=== PATIENT | male | born 1950 | race Caucasian/White ===

== ENCOUNTER 2020-04-26 09:26 | Outpatient (REF) | payer MEDICARE, SELFPAY ==
[2020-04-26 10:12] LABS: MANUAL DIFF FLAG NO
[2020-04-26 10:19] LABS: Basophils Percent Auto 0.7 % (0-2); Eosinophils Absolute Auto 0.2 X10*3/uL (0.0-0.4); Eosinophils Percent Auto 2.9 % (0-4); Hematocrit 40.2 % (42-52); Hemoglobin 13.7 g/dl (14.0-18.0); Imm Gran Abs Auto 0.09 X10*3/uL (0.00-0.03); Imm Gran Pct Auto 1.5 % (0.0-0.4); Lymphocytes Absolute Auto 1.1 X10*3/uL (1.2-4.9); Lymphocytes Percent Auto 18.4 % (20-40); Mean Corpuscular HGB Conc 34.1 g/dl (31.0-36.0); Mean Corpuscular Hemoglobin 33.2 pg (27.0-33.0); Mean Corpuscular Volume 97.3 fL (80-98); Mean Platelet Volume 10.6 fL (9.4-12.4); Monocytes Absolute Auto 0.7 X10*3/uL (0.1-1.2); Monocytes Percent Auto 11.3 % (2-11); Neutrophils Absolute Auto 3.8 X10*3/uL (2.0-8.3); Neutrophils Percent Auto 65.2 % (45-73); Platelet Count 224 X10*3/uL (160-400); Red Blood Count 4.13 X10*6/uL (4.60-5.80); Red Cell Distribution Width 12.3 % (11.0-16.0); White Blood Count 5.8 X10*3/uL (4.8-10.8)
[2020-04-26 10:51] LABS: Alanine Aminotransferase 27 U/L (0-40); Alkaline Phosphatase 80 U/L (39-117); Anion Gap 11 (12-20); Aspartate Amino Transferase 18 U/L (5-37); Bilirubin Total 1.3 mg/dL (0.0-1.0); Blood Urea Nitrogen 19 mg/dL (9-16); Calcium 9.5 mg/dL (8.4-10.2); Carbon Dioxide 25 mmol/L (22-29); Chloride 102 mmol/L (96-108); Estimated Glomerular Filt Rate > 60; Glucose Random 293 mg/dL (60-115); Iron 121 mcg/dL (45-160); Percent Iron Saturation 44 % (15-50); Potassium 4.4 mmol/l (3.3-5.1); Sodium 134 mmol/L (135-145); Total Iron Binding Capacity 277 mcg/dL (228-428); Total Protein 6.2 g/dL (6.5-8.0); Unsaturated Iron Binding 156 ug/dL
[2020-04-26 11:25] LABS: Estimated Average Glucose 214 mg/dL; Hemoglobin A1c % 9.1 %
[2020-04-26 11:47] LABS: Creatinine Urine 48.73 mg/dL; Microalbumin Urine < 5.0 mg/L
== END 2020-04-26 09:27 | disposition home or self-care (01) ==
LOC: HO.10HDL 09:26
PROVIDERS: Visit Provider Internal Medicine
DX: D64.9 Anemia, unspecified (principal); I10 Essential (primary) hypertension; E11.9 Type 2 diabetes mellitus without complications
CPT/HCPCS: 36415; 80053; 82043; 83036; 83540; 85025

== ENCOUNTER 2020-09-13 10:08 | Outpatient (REF) | payer MEDICARE, SELFPAY ==
[2020-09-13 13:51] LABS: MANUAL DIFF FLAG NO
[2020-09-13 14:02] LABS: Basophils Absolute Auto 0.1 X10*3/uL (0.0-0.2); Basophils Percent Auto 0.9 % (0-2); Eosinophils Absolute Auto 0.2 X10*3/uL (0.0-0.4); Eosinophils Percent Auto 2.8 % (0-4); Hematocrit 39.8 % (42-52); Hemoglobin 13.5 g/dl (14.0-18.0); Imm Gran Abs Auto 0.13 X10*3/uL (0.00-0.03); Lymphocytes Absolute Auto 1.4 X10*3/uL (1.2-4.9); Lymphocytes Percent Auto 21.9 % (20-40); Mean Corpuscular HGB Conc 33.9 g/dl (31.0-36.0); Mean Corpuscular Hemoglobin 32.8 pg (27.0-33.0); Mean Corpuscular Volume 96.8 fL (80-98); Mean Platelet Volume 11.2 fL (9.4-12.4); Monocytes Absolute Auto 0.7 X10*3/uL (0.1-1.2); Monocytes Percent Auto 10.9 % (2-11); Neutrophils Absolute Auto 3.9 X10*3/uL (2.0-8.3); Neutrophils Percent Auto 61.5 % (45-73); Platelet Count 202 X10*3/uL (160-400); Red Blood Count 4.11 X10*6/uL (4.60-5.80); Red Cell Distribution Width 12.8 % (11.0-16.0); White Blood Count 6.4 X10*3/uL (4.8-10.8)
[2020-09-13 14:19] LABS: Alanine Aminotransferase 20 U/L (0-40); Albumin Level 4.1 g/dL (3.5-5.0); Alkaline Phosphatase 81 U/L (39-117); Anion Gap 14 (12-20); Aspartate Amino Transferase 14 U/L (5-37); Bilirubin Total 1.2 mg/dL (0.0-1.0); Blood Urea Nitrogen 19 mg/dL (9-16); Calcium 9.6 mg/dL (8.4-10.2); Carbon Dioxide 24 mmol/L (22-29); Chloride 103 mmol/L (96-108); Estimated Glomerular Filt Rate > 60; Glucose Random 296 mg/dL (60-115); Potassium 4.7 mmol/L (3.3-5.1); Sodium 136 mmol/L (135-145); Total Protein 6.4 g/dL (6.5-8.0)
[2020-09-13 14:38] LABS: Estimated Average Glucose 209 mg/dL; Hemoglobin A1c % 8.9 %
[2020-09-13 14:52] LABS: Creatinine Urine 42.24 mg/dL; Microalbumin Urine < 5.0 mg/L
== END 2020-09-13 10:09 | disposition home or self-care (01) ==
LOC: HO.10HDL 10:08
PROVIDERS: Visit Provider Internal Medicine
DX: E11.9 Type 2 diabetes mellitus without complications (principal); I10 Essential (primary) hypertension
CPT/HCPCS: 36415; 80053; 82043; 83036; 85025

== ENCOUNTER 2020-10-29 07:06 | Outpatient (REF) | payer MEDICARE, SELFPAY ==
[2020-10-29 08:24] LABS: Anion Gap 10 (12-20); Blood Urea Nitrogen 19 mg/dL (9-16); Calcium 9.8 mg/dL (8.4-10.2); Carbon Dioxide 25 mmol/L (22-29); Chloride 102 mmol/L (96-108); Estimated Glomerular Filt Rate > 60; Glucose Random 335 mg/dL (60-115); Potassium 4.9 mmol/L (3.3-5.1); Sodium 132 mmol/L (135-145)
[2020-10-29 09:21] LABS: Estimated Average Glucose 206 mg/dL; Hemoglobin A1c % 8.8 %
== END 2020-10-29 07:07 | disposition home or self-care (01) ==
LOC: HO.LAB 07:06
PROVIDERS: PCP Internal Medicine; Visit Provider Internal Medicine
DX: E11.9 Type 2 diabetes mellitus without complications (principal)
CPT/HCPCS: 36415; 80048; 83036

== ENCOUNTER 2021-02-28 12:22 | Outpatient (REF) | payer MEDICARE, SELFPAY ==
[2021-02-28 14:44] LABS: Estimated Average Glucose 200 mg/dL; Hemoglobin A1c % 8.6 %
[2021-02-28 15:08] LABS: Alanine Aminotransferase 16 U/L (0-40); Alkaline Phosphatase 75 U/L (39-117); Anion Gap 12 (12-20); Aspartate Amino Transferase 13 U/L (5-37); Blood Urea Nitrogen 14 mg/dL (9-16); Calcium 9.9 mg/dL (8.4-10.2); Carbon Dioxide 25 mmol/L (22-29); Chloride 104 mmol/L (96-108); Estimated Glomerular Filt Rate > 60; Glucose Random 243 mg/dL (60-115); Potassium 4.4 mmol/L (3.3-5.1); Sodium 137 mmol/L (135-145); Total Protein 6.1 g/dL (6.5-8.0)
== END 2021-02-28 12:23 | disposition home or self-care (01) ==
LOC: HO.10HDL 12:22
PROVIDERS: Visit Provider Internal Medicine
DX: E11.9 Type 2 diabetes mellitus without complications (principal); I10 Essential (primary) hypertension; I25.10 Atherosclerotic heart disease of native coronary artery without angina pectoris
CPT/HCPCS: 36415; 80053; 83036

== ENCOUNTER 2021-05-02 08:13 | Outpatient (REF) | payer MEDICARE, SELFPAY ==
[2021-05-02 08:38] LABS: MANUAL DIFF FLAG NO
[2021-05-02 09:37] LABS: Basophils Absolute Auto 0.1 X10*3/uL (0.0-0.2); Basophils Percent Auto 1.1 % (0-2); Eosinophils Absolute Auto 0.2 X10*3/uL (0.0-0.4); Eosinophils Percent Auto 3.9 % (0-4); Hematocrit 39.8 % (42.0-52.0); Hemoglobin 13.3 g/dl (14.0-18.0); Imm Gran Abs Auto 0.12 X10*3/uL (0.00-0.03); Imm Gran Pct Auto 2.2 % (0.0-0.4); Lymphocytes Absolute Auto 1.2 X10*3/uL (1.2-4.9); Lymphocytes Percent Auto 21.9 % (20-40); Mean Corpuscular HGB Conc 33.4 g/dl (31.0-36.0); Mean Corpuscular Hemoglobin 33.1 pg (27.0-33.0); Mean Platelet Volume 11.1 fL (9.4-12.4); Monocytes Absolute Auto 0.6 X10*3/uL (0.1-1.2); Monocytes Percent Auto 10.5 % (2-11); Neutrophils Absolute Auto 3.3 x10*3/uL (2.0-8.3); Neutrophils Percent Auto 60.4 % (45-73); Platelet Count 217 X10*3/uL (160-400); Red Blood Count 4.02 X10*6/uL (4.60-5.80); Red Cell Distribution Width 12.7 % (11.0-16.0); White Blood Count 5.4 X10*3/uL (4.8-10.8)
[2021-05-02 09:47] LABS: Estimated Average Glucose 171 mg/dL; Hemoglobin A1c % 7.6 %
[2021-05-02 10:07] LABS: Alanine Aminotransferase 17 U/L (0-40); Alkaline Phosphatase 78 U/L (39-117); Anion Gap 12 (12-20); Aspartate Amino Transferase 17 U/L (5-37); Bilirubin Total 0.7 mg/dL (0.0-1.0); Blood Urea Nitrogen 16 mg/dL (9-16); Calcium 9.7 mg/dL (8.4-10.2); Carbon Dioxide 23 mmol/L (22-29); Chloride 108 mmol/L (96-108); Cholesterol 106 mg/dL; Estimated Glomerular Filt Rate > 60; Glucose Fasting 173 mg/dL (60-99); HDL Cholesterol 43 mg/dL; LDL Cholesterol Calculated 52 mg/dl; Potassium 4.6 mmol/L (3.3-5.1); Sodium 138 mmol/L (135-145); Total Protein 6.3 g/dL (6.5-8.0); Triglycerides 55 mg/dL
[2021-05-02 10:43] LABS: Creatinine Urine 139.64 mg/dL; Microalbum/Creatinine Ratio Ur 6.4 ug/mg cr
[2021-05-02 11:13] LABS: Prostate Specific Antigen Scr 1.64 ng/mL (<0.05-4.0)
== END 2021-05-02 08:14 | disposition home or self-care (01) ==
LOC: HO.LAB 08:13
PROVIDERS: PCP Internal Medicine; Visit Provider Internal Medicine
DX: Z12.5 Encounter for screening for malignant neoplasm of prostate (principal); E11.9 Type 2 diabetes mellitus without complications; E78.00 Pure hypercholesterolemia, unspecified; N40.0 Benign prostatic hyperplasia without lower urinary tract symptoms; I10 Essential (primary) hypertension; I25.10 Atherosclerotic heart disease of native coronary artery without angina pectoris
CPT/HCPCS: 36415; 80053; 80061; 82043; 83036; 84153; 85025

== ENCOUNTER 2021-10-14 10:34 | Outpatient (REF) | payer MEDICARE, SELFPAY ==
[2021-10-14 10:50] LABS: MANUAL DIFF FLAG NO
[2021-10-14 11:06] LABS: Basophils Percent Auto 0.7 % (0-2); Eosinophils Absolute Auto 0.2 X10*3/uL (0.0-0.4); Eosinophils Percent Auto 3.1 % (0-4); Hematocrit 39.4 % (42.0-52.0); Hemoglobin 13.2 g/dl (14.0-18.0); Imm Gran Abs Auto 0.13 X10*3/uL (0.00-0.03); Imm Gran Pct Auto 2.2 % (0.0-0.4); Lymphocytes Absolute Auto 1.4 X10*3/uL (1.2-4.9); Lymphocytes Percent Auto 23.2 % (20-40); Mean Corpuscular HGB Conc 33.5 g/dl (31.0-36.0); Mean Corpuscular Hemoglobin 32.4 pg (27.0-33.0); Mean Corpuscular Volume 96.8 fL (80.0-98.0); Mean Platelet Volume 10.5 fL (9.4-12.4); Monocytes Absolute Auto 0.7 X10*3/uL (0.1-1.2); Monocytes Percent Auto 11.8 % (2-11); Neutrophils Absolute Auto 3.5 x10*3/uL (2.0-8.3); Platelet Count 211 X10*3/uL (160-400); Red Blood Count 4.07 X10*6/uL (4.60-5.80); Red Cell Distribution Width 12.8 % (11.0-16.0); White Blood Count 5.9 X10*3/uL (4.8-10.8)
[2021-10-14 11:13] LABS: Estimated Average Glucose 174 mg/dL; Hemoglobin A1c % 7.7 %
[2021-10-14 11:53] LABS: Alanine Aminotransferase 20 U/L (0-40); Alkaline Phosphatase 83 U/L (39-117); Anion Gap 8 (12-20); Aspartate Amino Transferase 15 U/L (5-37); Bilirubin Total 0.9 mg/dL (0.0-1.0); Blood Urea Nitrogen 24 mg/dL (9-16); Calcium 10.2 mg/dL (8.4-10.2); Carbon Dioxide 25 mmol/L (22-29); Chloride 106 mmol/L (96-108); Estimated Glomerular Filt Rate > 60; Glucose Random 233 mg/dL (60-115); Iron 58 mcg/dL (45-160); Percent Iron Saturation 20 % (15-50); Potassium 4.4 mmol/L (3.3-5.1); Sodium 135 mmol/L (135-145); Total Iron Binding Capacity 292 mcg/dL (228-428); Total Protein 6.6 g/dL (6.5-8.0); Unsaturated Iron Binding 234 ug/dL
[2021-10-14 14:00] LABS: Creatinine Urine 80.35 mg/dL; Microalbumin Urine < 5.0 mg/L
== END 2021-10-14 10:35 | disposition home or self-care (01) ==
LOC: HO.LAB 10:34
PROVIDERS: PCP Internal Medicine; Visit Provider Internal Medicine
DX: E11.9 Type 2 diabetes mellitus without complications (principal); I10 Essential (primary) hypertension; I25.10 Atherosclerotic heart disease of native coronary artery without angina pectoris; D64.9 Anemia, unspecified
CPT/HCPCS: 36415; 80053; 82043; 83036; 83540; 85025

== ENCOUNTER 2021-11-30 14:52 | Outpatient (REF) | payer MEDICARE, SELFPAY ==
[2021-11-30 15:20] LABS: COVID-19 Test Negative (Negative)
== END 2021-11-30 14:53 | disposition home or self-care (01) ==
LOC: HO.LNP 14:52
PROVIDERS: Visit Provider Internal Medicine
DX: Z20.822 Contact with and (suspected) exposure to COVID-19 (principal)
CPT/HCPCS: 87635

== ENCOUNTER 2022-04-27 07:34 | Outpatient (REF) | payer MEDICARE, SELFPAY ==
[2022-04-27 11:15] LABS: MANUAL DIFF FLAG NO
[2022-04-27 11:35] LABS: Basophils Absolute Auto 0.1 X10*3/uL (0.0-0.2); Eosinophils Absolute Auto 0.2 X10*3/uL (0.0-0.4); Eosinophils Percent Auto 2.9 % (0-4); Hematocrit 43.7 % (42.0-52.0); Hemoglobin 14.6 g/dl (14.0-18.0); Imm Gran Abs Auto 0.26 X10*3/uL (0.00-0.03); Imm Gran Pct Auto 3.8 % (0.0-0.4); Lymphocytes Absolute Auto 1.4 X10*3/uL (1.2-4.9); Lymphocytes Percent Auto 19.8 % (20-40); Mean Corpuscular HGB Conc 33.4 g/dl (31.0-36.0); Mean Corpuscular Hemoglobin 32.5 pg (27.0-33.0); Mean Corpuscular Volume 97.3 fL (80.0-98.0); Mean Platelet Volume 10.9 fL (9.4-12.4); Monocytes Absolute Auto 0.8 X10*3/uL (0.1-1.2); Monocytes Percent Auto 11.3 % (2-11); Neutrophils Absolute Auto 4.2 x10*3/uL (2.0-8.3); Neutrophils Percent Auto 61.2 % (45-73); Platelet Count 243 X10*3/uL (160-400); Red Blood Count 4.49 X10*6/uL (4.60-5.80); Red Cell Distribution Width 12.3 % (11.0-16.0); White Blood Count 6.8 X10*3/uL (4.8-10.8)
[2022-04-27 11:56] LABS: Alanine Aminotransferase 23 U/L (0-40); Albumin Level 4.4 g/dL (3.5-5.0); Alkaline Phosphatase 62 U/L (39-117); Anion Gap 15 (12-20); Aspartate Amino Transferase 20 U/L (5-37); Bilirubin Total 1.7 mg/dL (0.0-1.0); Blood Urea Nitrogen 15 mg/dL (9-16); Calcium 10.1 mg/dL (8.4-10.2); Carbon Dioxide 25 mmol/L (22-29); Chloride 101 mmol/L (96-108); Cholesterol 116 mg/dL; Estimated Glomerular Filt Rate > 60; Glucose Fasting 195 mg/dL (60-99); HDL Cholesterol 47 mg/dL; LDL Cholesterol Calculated 47 mg/dl; Potassium 4.3 mmol/L (3.3-5.1); Sodium 137 mmol/L (135-145); Total Protein 6.9 g/dL (6.5-8.0); Triglycerides 110 mg/dL
[2022-04-27 11:58] LABS: Prostate Specific Antigen 1.59 ng/mL (<0.05-4.0)
[2022-04-27 12:16] LABS: Creatinine Urine 237.95 mg/dL; Microalbum/Creatinine Ratio Ur 5.8 ug/mg cr
[2022-04-27 12:36] LABS: Estimated Average Glucose 174 mg/dL; Hemoglobin A1c % 7.7 %
== END 2022-04-27 07:35 | disposition home or self-care (01) ==
LOC: HO.WFDLDS 07:34
PROVIDERS: Visit Provider Internal Medicine
DX: Z00.00 Encounter for general adult medical examination without abnormal findings (principal); E11.9 Type 2 diabetes mellitus without complications; Z12.5 Encounter for screening for malignant neoplasm of prostate
CPT/HCPCS: 36415; 80053; 80061; 82043; 83036; 84153; 85025

== ENCOUNTER 2022-11-02 06:35 | Outpatient (REF) | payer MEDICARE, SELFPAY ==
[2022-11-02 06:46] LABS: MANUAL DIFF FLAG NO
[2022-11-02 07:56] LABS: Basophils Absolute Auto 0.1 X10*3/uL (0.0-0.2); Basophils Percent Auto 1.3 % (0-2); Eosinophils Absolute Auto 0.2 X10*3/uL (0.0-0.4); Hematocrit 38.9 % (42.0-52.0); Hemoglobin 12.9 g/dl (14.0-18.0); Imm Gran Abs Auto 0.22 X10*3/uL (0.00-0.03); Imm Gran Pct Auto 3.6 % (0.0-0.4); Lymphocytes Absolute Auto 1.6 X10*3/uL (1.2-4.9); Lymphocytes Percent Auto 26.4 % (20-40); Mean Corpuscular HGB Conc 33.2 g/dl (31.0-36.0); Mean Corpuscular Hemoglobin 32.8 pg (27.0-33.0); Monocytes Absolute Auto 0.7 X10*3/uL (0.1-1.2); Monocytes Percent Auto 11.9 % (2-11); Neutrophils Absolute Auto 3.3 x10*3/uL (2.0-8.3); Neutrophils Percent Auto 53.8 % (45-73); Platelet Count 216 X10*3/uL (160-400); Red Blood Count 3.93 X10*6/uL (4.60-5.80); Red Cell Distribution Width 12.7 % (11.0-16.0); White Blood Count 6.1 X10*3/uL (4.8-10.8)
[2022-11-02 08:11] LABS: Estimated Average Glucose 180 mg/dL; Hemoglobin A1c % 7.9 %
[2022-11-02 08:34] LABS: Alanine Aminotransferase 17 U/L (0-40); Albumin Level 3.8 g/dL (3.5-5.0); Alkaline Phosphatase 90 U/L (39-117); Anion Gap 10 (12-20); Aspartate Amino Transferase 13 U/L (5-37); Bilirubin Total 0.8 mg/dL (0.0-1.0); Blood Urea Nitrogen 22 mg/dL (9-16); Calcium 9.9 mg/dL (8.4-10.2); Carbon Dioxide 27 mmol/L (22-29); Chloride 107 mmol/L (96-108); Estimated Glomerular Filt Rate > 60; Glucose Random 222 mg/dL (60-115); Potassium 4.8 mmol/L (3.3-5.1); Sodium 139 mmol/L (135-145); Total Protein 5.9 g/dL (6.5-8.0)
[2022-11-02 10:00] LABS: Creatinine Urine 196.06 mg/dL; Microalbum/Creatinine Ratio Ur 6.6 ug/mg cr
== END 2022-11-02 06:36 | disposition home or self-care (01) ==
LOC: HO.LAB 06:35
PROVIDERS: PCP Internal Medicine; Visit Provider Internal Medicine
DX: I10 Essential (primary) hypertension (principal); E11.9 Type 2 diabetes mellitus without complications; K21.9 Gastro-esophageal reflux disease without esophagitis; I25.10 Atherosclerotic heart disease of native coronary artery without angina pectoris
CPT/HCPCS: 36415; 80053; 82043; 83036; 85025

== ENCOUNTER 2022-11-21 08:54 | Outpatient (REF) | payer MEDICARE, SELFPAY ==
--- NOTE | ~2022-11-21 | FL_ITS ---
EXAMINATION: XR FLUOROSCOPY UPPER GI WITH AIR CLINICAL INFORMATION: Dysphagia COMPARISON: None available. TECHNIQUE: Upper GI was performed using thin and thick barium and effervescent granules. FINDINGS: Esophageal motility is normal. No hernia is seen. There is mild gastroesophageal reflux. There is a feline appearance of the distal thoracic esophagus and mild narrowing. Correlation with endoscopy recommended. There are prominent folds seen in the stomach and duodenum. This may be related to hyperacidity. No ulcer, mass or stricture. FLUOROSCOPY TIME: 0.5 minutes DOSE AREA PRODUCT: 5 sanders per centimeter squared. Total dose 22 mgy. 26 saved fluoroscopic images. FL/FL upper GI w air IMPRESSION: Diffuse fold thickening of the stomach and proximal and duodenum, question related to hyperacidity. Gastroesophageal reflux. Question mild distal esophageal narrowing and esophagitis. Correlation with endoscopy recommended.
== END 2022-11-21 08:55 | disposition home or self-care (01) ==
LOC: HO.XRAY 08:54
PROVIDERS: PCP Internal Medicine; Visit Provider Internal Medicine
DX: R13.10 Dysphagia, unspecified (principal)
CPT/HCPCS: 74246

== ENCOUNTER 2022-12-05 13:25 | Outpatient (REF) | payer MEDICARE, SELFPAY ==
--- NOTE | ~2022-12-05 | US_ITS ---
EXAMINATION: US ABDOMEN COMPLETE CLINICAL INFORMATION: Epigastric pain. COMPARISON: None available. TECHNIQUE: Real-time imaging of the abdominal viscera. FINDINGS: PANCREAS: Visualized portions of pancreas are grossly unremarkable allowing proximal most portion of the pancreatic duct is prominent measuring up to 6 mm in diameter, nonspecific. ABDOMINAL AORTA: Visualized portion of the distal abdominal aorta are normal in caliber. The proximal and midportion of the abdominal aorta were not clearly visualized due to overlying bowel gas. INFERIOR VENA CAVA: Visualized portions are normal. LIVER: The liver is normal in size. The liver contour is normal. Liver echogenicity is increased diffusely. 8 mm simple appearing left hepatic cyst for which no follow-up imaging is usually warranted. There is no intrahepatic biliary duct dilatation seen. GALLBLADDER: The gallbladder is physiologically distended. Echogenic bile and several tiny gallstones/gravel are noted. Echogenic foci within the gallbladder wall are most suggestive of adenomyomatosis. COMMON BILE DUCT: 1.1 cm in diameter. RIGHT KIDNEY: Normal. No hydronephrosis. No renal calculi or focal parenchymal lesions. The kidney measures 11.8 cm in maximum dimension. LEFT KIDNEY: 3.1 cm relatively simple appearing cyst for which no follow-up imaging is usually warranted. No hydronephrosis or renal calculi. The kidney measures 12.1 cm in maximum dimension. SPLEEN: Normal. The spleen measures 10.8 cm in maximum dimension. FREE FLUID: None. US/US abdomen complete IMPRESSION: 1. The gallbladder contains echogenic bile and several tiny gallstones/gravel. Echogenic foci within the gallbladder wall are most suggestive of adenomyomatosis. 2. The common bile duct is dilated measuring up to 1.1 cm in diameter in the visualized proximal portion of the pancreatic duct is also dilated measuring up to 6 mm. Clinical correlation recommended. This may further evaluated with MRI/MRCP if clinically indicated. 3. Diffusely increased liver echogenicity. This is a nonspecific finding but most suggestive of hepatic steatosis. Correlation with liver enzymes recommended.
== END 2022-12-05 13:26 | disposition home or self-care (01) ==
LOC: HO.US 13:25
PROVIDERS: PCP Internal Medicine; Visit Provider Internal Medicine
DX: R10.13 Epigastric pain (principal)
CPT/HCPCS: 76700

== ENCOUNTER 2022-12-06 09:24 | Day surgery (SDC) | payer MEDICARE, SELFPAY ==
--- NOTE | 2022-12-05 13:21 | P.CONAN_ITS ---
Documented by User: Jessy Raymundo NP 12/05/22 13:22 HPI - Anesthesia Eval Consult details Narrative: 72yo M for Upper Endoscopy [facility] Past Medical History Medical History (Updated 12/06/22 @ 09:31 by Marguerite Mcrae RN) Arrhythmia Diabetes Elevated cholesterol History of ETT History of skin cancer HTN (hypertension) Surgical History Surgical History (Updated 12/05/22 @ 12:57 by Angela Tian RN) Hx of colonoscopy Social History Social History Patient Tobacco Use Status: Never used Tobacco Use of substances other than those prescribed or required for medical reasons: No Are you DNR?: No Advance Directives: No Advance Directives Information Provided: Yes Meds Allergies Allergy/AdvReac Type Severity Reaction Status Date / Time simvastatin Allergy Unknown Verified 12/05/22 12:57 Home Medications Medication Instructions Recorded Confirmed Last Taken Type aspirin 81 mg tablet 81 mg PO BID 12/05/22 12/05/22 Unknown History atorvastatin 40 mg tablet 40 mg PO DAILY 12/05/22 12/05/22 Unknown History carvedilol 6.25 mg tablet 6.25 mg PO BID 12/05/22 12/05/22 Unknown History cholecalciferol (vitamin D3) 50 50 mcg PO DAILY 12/05/22 12/05/22 Unknown History mcg (2,000 unit) tablet (Vitamin D3) coenzyme Q10 100 mg capsule 300 mg PO DAILY 12/05/22 12/05/22 Unknown History (CoQ-10) cyanocobalamin (vitamin B-12) 1,000 mcg PO DAILY 12/05/22 12/05/22 Unknown History 1,000 mcg tablet (Vitamin B-12) glipizide 10 mg tablet 10 mg PO 12/05/22 Unknown History metformin 500 mg tablet 500 mg PO DAILY 12/05/22 12/05/22 Unknown History sitagliptin phosphate 50 mg tablet 50 mg PO 12/05/22 Unknown History (Januvia) valsartan 320 1 tab PO DAILY 12/05/22 12/05/22 Unknown History mg-hydrochlorothiazide 12.5 mg tablet Exam Exam Date and Time: December 05, 2022 1321 Pertinent Lab Results Pertinent Lab Results: Laboratory Tests 11/02/22 11/02/22 06:44 06:44 WBC 6.1 Hgb 12.9 L Hct 38.9 L Plt Count 216 Sodium 139 Potassium 4.8 Chloride 107 Carbon Dioxide 27 BUN 22 H Creatinine 0.97 Assessment and Plan Assessment Anesthesia Assessment: Chart Reviewed Documented by User: Germaine Diamond MD 12/06/22 10:16 [facility] Past Medical History Medical History (Updated 12/06/22 @ 09:31 by Marguerite Mcrae, ISABELA) Arrhythmia Diabetes Elevated cholesterol History of ETT History of skin cancer HTN (hypertension) Family History Family history of problems with anesthesia: No Surgical History Surgical History (Updated 12/05/22 @ 12:57 by Angela Tian RN) Hx of colonoscopy History of Problems with Anesthesia: No Social History Social History Patient Tobacco Use Status: Never used Tobacco Use of substances other than those prescribed or required for medical reasons: No Are you DNR?: No Advance Directives: No Advance Directives Information Provided: Yes Meds Allergies Allergy/AdvReac Type Severity Reaction Status Date / Time simvastatin Allergy Unknown Verified 12/05/22 12:57 Home Medications Medication Instructions Recorded Confirmed Last Taken Type aspirin 81 mg tablet 81 mg PO BID 12/05/22 12/05/22 Unknown History atorvastatin 40 mg tablet 40 mg PO DAILY 12/05/22 12/05/22 Unknown History carvedilol 6.25 mg tablet 6.25 mg PO BID 12/05/22 12/05/22 Unknown History cholecalciferol (vitamin D3) 50 50 mcg PO DAILY 12/05/22 12/05/22 Unknown History mcg (2,000 unit) tablet (Vitamin D3) coenzyme Q10 100 mg capsule 300 mg PO DAILY 12/05/22 12/05/22 Unknown History (CoQ-10) cyanocobalamin (vitamin B-12) 1,000 mcg PO DAILY 12/05/22 12/05/22 Unknown History 1,000 mcg tablet (Vitamin B-12) glipizide 10 mg tablet 10 mg PO 12/05/22 Unknown History metformin 500 mg tablet 500 mg PO DAILY 12/05/22 12/05/22 Unknown History sitagliptin phosphate 50 mg tablet 50 mg PO 12/05/22 Unknown History (Januvia) valsartan 320 1 tab PO DAILY 12/05/22 12/05/22 Unknown History mg-hydrochlorothiazide 12.5 mg tablet Exam Airway Mallampati Class: I TM Dist: >3cm Loose/Missing/Broken Teeth: No Heart: rr Lungs: cta Assessment and Plan Assessment Anesthesia Assessment: Anesthesia Plan Discussed Final Anesthetic Review Family History of Problems with Anesthesia: No History of Problems with Anesthesia: No NPO: Yes ASA Class: II Final Preanesthetic Review: No Changes in Pt Med Stat, Meds/Allgs Chart Reviewed, Consent Obtained/Reviewed and Anes Risks/Benef Reviewed Patient Risk: Low Procedure Risk: Low Anesthetic Plan Anesthetic Plan: MAC: Disposition: Standard PACU
[2022-12-06 09:33] VITALS: BMI 27.3
[2022-12-06 09:53] VITALS: BP 142/67; PULSE 74; RESP 18; TEMP 36.4; O2SAT 99
[2022-12-06 09:56] LABS: Glucose, Whole Blood 309 mg/dL (60-115)
[2022-12-06] MEDS: Lactated Ringers 1,000 ML 100 ML IVCONT (10:04)
[2022-12-06 11:00] VITALS: BP 90/53; PULSE 70; RESP 16; TEMP 36.4; O2SAT 98
--- NOTE | 2022-12-06 11:06 | PM.OP ---
Brief Operative Note Date of Service: 12/06/22 Pre-op diagnosis: Abdominal pain, abnormal GI series Post-op diagnosis: other (Duodenal ulcers, Duodenitis, Gastritis, Hiatal hernia, GERD) Procedure: EGD with biopsies Surgeon: Nikolai Torres Anesthesia: MAC Was an Community Arts Officer used for this Procedure?: No Estimated blood loss (mL): 2.0 Pathology: other (A. Gastric antrum B. EG Junction at 39cm) Condition: stable Disposition: PACU
[2022-12-06 11:15] VITALS: BP 112/63; PULSE 86; RESP 18; TEMP 36.4; O2SAT 99
--- NOTE | 2022-12-06 11:28 | OP_ITS ---
DATE OF SERVICE: 12/06/2022 SURGEON: Nikolai Torres MD INDICATIONS: The patient presents for evaluation of abdominal pain and abnormal upper GI series. Full consent obtained from him for this, including risks of bleeding and perforation. PREOPERATIVE DIAGNOSIS: POSTOPERATIVE DIAGNOSIS: PROCEDURE PERFORMED: Esophagogastroduodenoscopy with biopsies. ESTIMATED BLOOD LOSS: COMPLICATIONS: ANESTHESIA: Monitored anesthesia care. ASSISTANTS: SPECIMENS: PREOPERATIVE DIAGNOSES: Abnormal upper GI series and abdominal pain. POSTOPERATIVE DIAGNOSES: Abnormal upper GI series and abdominal pain, duodenal ulcers and duodenitis, gastritis, small hiatal hernia, gastroesophageal reflux. DESCRIPTION OF PROCEDURE: The patient was placed in the left lateral decubitus position. The Olympus video gastroscope was passed in the posterior oropharynx and upper esophagus under direct vision. The scope was passed slowly to the distal esophagus. The gastroesophageal junction appeared at 39 cm. There was some slight irregularity consistent with reflux, but no definitive evidence of Mcgee's mucosa, nor any esophagitis. The scope entered the stomach. There was a small hiatal hernia. The scope was advanced to the pylorus and the duodenum was cannulated to the descending portion. The 2nd and 3rd portions of duodenum appeared normal. The duodenal bulb revealed several 8-10 mm ulcerations with surrounding edema, as well as 1 narrow linear ulceration. There were no visible vessels nor any sign of active bleeding. There was no gross evidence of malignancy. The scope was withdrawn back in the stomach. The gastric antrum had areas of erythema and edema, but no erosions or ulceration. There was good peristalsis. Biopsies were obtained from the antrum. The scope was retroflexed visualizing the proximal stomach carefully, which appeared normal, without any sign of mass or ulceration. The scope was straightened and withdrawn back to the esophagus. Biopsies were obtained at the EG junction at 39 cm. Proximal to this, the esophageal mucosa appeared normal. There was no sign of any esophagitis nor stricture. The scope was withdrawn from the patient. He tolerated the procedure well and was returned to recovery area in stable condition. IMPRESSION: 1. Duodenal ulcers and duodenitis. 2. Gastritis, rule out Helicobacter pylori. 3. Small hiatal hernia, gastroesophageal reflux. PLAN: The results of biopsies will be checked. If there is evidence of H pylori, I would recommend treating that. He was just started on omeprazole recently and I have advised him to continue that long-term for the time being. He had been on 2 baby aspirin daily, which he just stopped as of yesterday and I have advised him to stay off that, as well as all NSAIDs, care home. He did have an abdominal ultrasound yesterday. The results of which are pending. I will plan to see him in followup in the office. If the ultrasound does not show gallstones or any other pathology, then we would continue omeprazole and presume his abdominal complaints were in relation to the ulcer disease, which was presumably in relation to his chronic aspirin use. This has been discussed with his . MD KM Arrieta/NAHUN / [id number] MTDLuisito
== END 2022-12-06 11:57 | disposition home or self-care (01) ==
PROVIDERS: PCP Internal Medicine; Visit Provider Internal Medicine
PROC: 0DJ08ZZ Inspection of Upper Intestinal Tract, Via Natural or Artificial Opening Endoscopic (ICD-10-PCS; CPT 43235; principal; 2022-12-06 10:30)
DX: R10.13 Epigastric pain (principal); R93.3 Abnormal findings on diagnostic imaging of other parts of digestive tract; K26.9 Duodenal ulcer, unspecified as acute or chronic, without hemorrhage or perforation; K29.80 Duodenitis without bleeding; K29.70 Gastritis, unspecified, without bleeding; B96.81 Helicobacter pylori [H. pylori] as the cause of diseases classified elsewhere; K44.9 Diaphragmatic hernia without obstruction or gangrene; K21.9 Gastro-esophageal reflux disease without esophagitis; I10 Essential (primary) hypertension; E11.9 Type 2 diabetes mellitus without complications; Z79.82 Long term (current) use of aspirin; Z79.84 Long term (current) use of oral hypoglycemic drugs; Z79.899 Other long term (current) drug therapy
CPT/HCPCS: 43239; 82947; 88305; 88342

== ENCOUNTER 2023-01-02 07:00 | Outpatient (REF) | payer MEDICARE, SELFPAY ==
[2023-01-02 07:58] LABS: Alanine Aminotransferase 17 U/L (0-40); Albumin Level 3.9 g/dL (3.5-5.0); Alkaline Phosphatase 74 U/L (39-117); Amylase 81 U/L (28-100); Aspartate Amino Transferase 13 U/L (5-37); Bilirubin Direct 0.4 mg/dL (0.0-0.5); Lipase 51 U/L (8-78); Total Protein 6.4 g/dL (6.5-8.0)
== END 2023-01-02 07:01 | disposition home or self-care (01) ==
LOC: HO.LAB 07:00
PROVIDERS: PCP Internal Medicine; Visit Provider Internal Medicine
DX: K80.20 Calculus of gallbladder without cholecystitis without obstruction (principal); R93.2 Abnormal findings on diagnostic imaging of liver and biliary tract
CPT/HCPCS: 36415; 80076; 82150; 83690

== ENCOUNTER 2023-01-18 07:22 | Outpatient (REF) | payer MEDICARE, SELFPAY ==
--- NOTE | ~2023-01-18 | MR_ITS ---
EXAMINATION: MR ABDOMEN WITHOUT CONTRAST CLINICAL INFORMATION: Gallstones, abnormal ultrasound of bile duct COMPARISON: Abdominal ultrasound 12/05/2022 TECHNIQUE: MRI of the abdomen without contrast was obtained using routine sequences. Heavily T2 weighted MRCP sequences were also obtained. FINDINGS: LUNG BASES: Unremarkable. ABDOMINAL AND PELVIC WALL: Unremarkable. LIVER AND BILIARY TREE: Trace central intrahepatic biliary duct dilatation. Common bile duct measures 9 mm in maximal dimension which is slightly greater than expected for age however tapers to normal caliber of 5 mm distally. No intraluminal filling defect to suggest choledocholithiasis. GALLBLADDER: No definite cholelithiasis identified. Gallbladder is unremarkable. PANCREAS: There is an accessory pancreatic duct which communicates with the main pancreatic duct drains to the minor papilla. No pancreatic duct dilatation. Lack of intravenous contrast limits evaluation for any pancreatic mass. SPLEEN: Unremarkable. ADRENAL GLANDS: Unremarkable. KIDNEYS AND URETERS: Unremarkable. GASTROINTESTINAL TRACT: Unremarkable. VASCULAR: Unremarkable. LYMPH NODES/PERITONEUM: No lymphadenopathy. FREE FLUID: None. OSSEOUS STRUCTURES: Unremarkable. MR/MR MRCP IMPRESSION: 1. Common bile duct measures 9 mm in maximal dimension which is slightly greater than expected for age trace central intrahepatic biliary duct dilatation however tapers to normal caliber of 5 mm distally. No intraluminal filling defect to suggest choledocholithiasis. Lack of intravenous contrast limits evaluation for any pancreatic mass. 2. No definite cholelithiasis identified. 3. There is an accessory pancreatic duct which communicates with the main pancreatic duct drains to the minor papilla. No pancreatic duct dilatation.
[2023-01-18 08:25] LABS: MANUAL DIFF FLAG NO
[2023-01-18 09:02] LABS: Basophils Absolute Auto 0.1 X10*3/uL (0.0-0.2); Basophils Percent Auto 0.9 % (0-2); Eosinophils Absolute Auto 0.2 X10*3/uL (0.0-0.4); Eosinophils Percent Auto 2.4 % (0-4); Hematocrit 40.7 % (42.0-52.0); Hemoglobin 13.7 g/dl (14.0-18.0); Imm Gran Abs Auto 0.24 X10*3/uL (0.00-0.03); Imm Gran Pct Auto 3.8 % (0.0-0.4); Lymphocytes Absolute Auto 1.2 X10*3/uL (1.2-4.9); Mean Corpuscular HGB Conc 33.7 g/dl (31.0-36.0); Mean Corpuscular Volume 95.1 fL (80.0-98.0); Mean Platelet Volume 10.7 fL (9.4-12.4); Monocytes Absolute Auto 0.8 X10*3/uL (0.1-1.2); Monocytes Percent Auto 11.8 % (2-11); Neutrophils Percent Auto 62.1 % (45-73); Platelet Count 214 X10*3/uL (160-400); Red Blood Count 4.28 X10*6/uL (4.60-5.80); Red Cell Distribution Width 12.3 % (11.0-16.0); White Blood Count 6.4 X10*3/uL (4.8-10.8)
[2023-01-18 09:22] LABS: Estimated Average Glucose 197 mg/dL; Hemoglobin A1c % 8.5 %
[2023-01-18 09:41] LABS: Alanine Aminotransferase 14 U/L (0-40); Albumin Level 3.9 g/dL (3.5-5.0); Alkaline Phosphatase 74 U/L (39-117); Anion Gap 11 (12-20); Aspartate Amino Transferase 11 U/L (5-37); Bilirubin Total 1.4 mg/dL (0.0-1.0); Blood Urea Nitrogen 20 mg/dL (9-16); Carbon Dioxide 26 mmol/L (22-29); Chloride 104 mmol/L (96-108); Estimated Glomerular Filt Rate > 60; Glucose Random 266 mg/dL (60-115); Potassium 4.6 mmol/L (3.3-5.1); Sodium 136 mmol/L (135-145); Total Protein 6.6 g/dL (6.5-8.0)
== END 2023-01-18 07:23 | disposition home or self-care (01) ==
LOC: HO.MRI 07:22
PROVIDERS: PCP Internal Medicine; Visit Provider Internal Medicine
DX: K80.20 Calculus of gallbladder without cholecystitis without obstruction (principal); R93.2 Abnormal findings on diagnostic imaging of liver and biliary tract; Z13.89 Encounter for screening for other disorder
CPT/HCPCS: 36415; 74181; 80053; 83036; 85025

== ENCOUNTER 2023-08-03 07:17 | Outpatient (REF) | payer MEDICARE, SELFPAY ==
[2023-08-03 11:31] LABS: MANUAL DIFF FLAG NO
[2023-08-03 11:44] LABS: Basophils Absolute Auto 0.1 X10*3/uL (0.0-0.2); Basophils Percent Auto 1.4 % (0-2); Eosinophils Absolute Auto 0.2 X10*3/uL (0.0-0.4); Eosinophils Percent Auto 3.9 % (0-4); Hematocrit 41.7 % (42.0-52.0); Imm Gran Abs Auto 0.19 X10*3/uL (0.00-0.03); Imm Gran Pct Auto 3.3 % (0.0-0.4); Lymphocytes Absolute Auto 1.6 X10*3/uL (1.2-4.9); Lymphocytes Percent Auto 28.6 % (20-40); Mean Corpuscular HGB Conc 33.6 g/dl (31.0-36.0); Mean Corpuscular Volume 95.2 fL (80.0-98.0); Mean Platelet Volume 11.2 fL (9.4-12.4); Monocytes Absolute Auto 0.7 X10*3/uL (0.1-1.2); Monocytes Percent Auto 11.9 % (2-11); Neutrophils Absolute Auto 2.9 x10*3/uL (2.0-8.3); Neutrophils Percent Auto 50.9 % (45-73); Platelet Count 222 X10*3/uL (160-400); Red Blood Count 4.38 X10*6/uL (4.60-5.80); White Blood Count 5.7 X10*3/uL (4.8-10.8)
[2023-08-03 11:50] LABS: Estimated Average Glucose 237 mg/dL; Hemoglobin A1c % 9.9 % (<6.0)
[2023-08-03 11:54] LABS: Alanine Aminotransferase 15 U/L (0-40); Alkaline Phosphatase 100 U/L (39-117); Anion Gap 12 (12-20); Aspartate Amino Transferase 12 U/L (5-37); Bilirubin Total 0.9 mg/dL (0.0-1.0); Blood Urea Nitrogen 21 mg/dL (9-16); Carbon Dioxide 27 mmol/L (22-29); Chloride 102 mmol/L (96-108); Cholesterol 120 mg/dL (<200); Estimated Glomerular Filt Rate > 60; Glucose Fasting 329 mg/dL (60-99); HDL Cholesterol 41 mg/dL (>40); LDL Cholesterol Calculated 53 mg/dL (<100); Potassium 4.4 mmol/L (3.3-5.1); Sodium 137 mmol/L (135-145); Total Protein 6.6 g/dL (6.5-8.0); Triglycerides 132 mg/dL (<150)
[2023-08-03 12:07] LABS: Prostate Specific Antigen 1.96 ng/mL (<0.05-4.0)
[2023-08-03 12:16] LABS: Creatinine Urine 93.35 mg/dL; Microalbum/Creatinine Ratio Ur 6.4 ug/mg cr (<30)
[2023-08-09 05:59] LABS: Lipoprotein A 28 nmol/L (<75)
== END 2023-08-03 07:18 | disposition home or self-care (01) ==
LOC: HO.WFDLDS 07:17
PROVIDERS: Visit Provider Internal Medicine
DX: Z12.5 Encounter for screening for malignant neoplasm of prostate (principal); I10 Essential (primary) hypertension; I25.10 Atherosclerotic heart disease of native coronary artery without angina pectoris; E78.00 Pure hypercholesterolemia, unspecified; E11.9 Type 2 diabetes mellitus without complications
CPT/HCPCS: 36415; 80053; 80061; 82043; 82570; 83036; 83695; 84153; 85025

== ENCOUNTER 2023-08-27 07:27 | Outpatient (REF) | payer MEDICARE, SELFPAY ==
[2023-08-27 11:44] LABS: Anion Gap 13 (12-20); Blood Urea Nitrogen 22 mg/dL (9-16); Calcium 9.9 mg/dL (8.4-10.2); Carbon Dioxide 25 mmol/L (22-29); Chloride 103 mmol/L (96-108); Estimated Glomerular Filt Rate > 60; Glucose Random 184 mg/dL (60-115); Potassium 4.2 mmol/L (3.3-5.1); Sodium 137 mmol/L (135-145)
[2023-08-27 11:48] LABS: Estimated Average Glucose 212 mg/dL
== END 2023-08-27 07:28 | disposition home or self-care (01) ==
LOC: HO.WFDLDS 07:27
PROVIDERS: Visit Provider Internal Medicine
DX: E11.9 Type 2 diabetes mellitus without complications (principal)
CPT/HCPCS: 36415; 80048; 83036

== ENCOUNTER 2023-11-27 09:27 | Outpatient (REF) | payer MEDICARE, SELFPAY ==
[2023-11-27 11:29] LABS: Estimated Average Glucose 183 mg/dL
[2023-11-27 11:58] LABS: Alanine Aminotransferase 16 U/L (0-40); Albumin Level 4.2 g/dL (3.5-5.0); Alkaline Phosphatase 95 U/L (39-117); Anion Gap 14 (12-20); Aspartate Amino Transferase 12 U/L (5-37); Bilirubin Total 0.8 mg/dL (0.0-1.0); Blood Urea Nitrogen 26 mg/dL (9-16); Carbon Dioxide 25 mmol/L (22-29); Chloride 104 mmol/L (96-108); Estimated Glomerular Filt Rate > 60; Glucose Random 273 mg/dL (60-115); Potassium 4.7 mmol/L (3.3-5.1); Sodium 138 mmol/L (135-145); Total Protein 6.9 g/dL (6.5-8.0)
[2023-11-27 12:09] LABS: Creatinine Urine 29.64 mg/dL; Microalbumin Urine < 5.0 mg/L
== END 2023-11-27 09:28 | disposition home or self-care (01) ==
LOC: HO.10HDL 09:27
PROVIDERS: Visit Provider Internal Medicine
DX: E11.9 Type 2 diabetes mellitus without complications (principal); I10 Essential (primary) hypertension; K21.9 Gastro-esophageal reflux disease without esophagitis; E78.00 Pure hypercholesterolemia, unspecified
CPT/HCPCS: 36415; 80053; 82043; 82570; 83036

== ENCOUNTER 2024-05-29 07:37 | Outpatient (REF) | payer MEDICARE, SELFPAY ==
[2024-05-29 07:59] LABS: MANUAL DIFF FLAG NO
[2024-05-29 08:13] LABS: Basophils Absolute Auto 0.1 X10*3/uL (0.0-0.2); Basophils Percent Auto 1.2 % (0-2); Eosinophils Absolute Auto 0.4 X10*3/uL (0.0-0.4); Eosinophils Percent Auto 6.3 % (0-4); Hematocrit 42.6 % (42.0-52.0); Hemoglobin 14.7 g/dl (14.0-18.0); Imm Gran Abs Auto 0.19 X10*3/uL (0.00-0.03); Imm Gran Pct Auto 3.3 % (0.0-0.4); Lymphocytes Absolute Auto 1.3 X10*3/uL (1.2-4.9); Mean Corpuscular HGB Conc 34.5 g/dl (31.0-36.0); Mean Corpuscular Hemoglobin 32.7 pg (27.0-33.0); Mean Corpuscular Volume 94.9 fL (80.0-98.0); Mean Platelet Volume 10.7 fL (9.4-12.4); Monocytes Absolute Auto 0.8 X10*3/uL (0.1-1.2); Monocytes Percent Auto 13.6 % (2-11); Neutrophils Absolute Auto 3.1 x10*3/uL (2.0-8.3); Neutrophils Percent Auto 53.6 % (45-73); Platelet Count 166 X10*3/uL (160-400); Red Blood Count 4.49 X10*6/uL (4.60-5.80); Red Cell Distribution Width 12.9 % (11.0-16.0); White Blood Count 5.7 X10*3/uL (4.8-10.8)
[2024-05-29 08:21] LABS: Estimated Average Glucose 200 mg/dL; Hemoglobin A1C 258.6834 umol/L; Hemoglobin A1c % 8.6 % (<6.0); Total Hemoglobin (HGBA1C) 3675.6608 umol/L
[2024-05-29 08:26] LABS: Appearance Urine Clear; Color Urine Yellow; Glucose Urine UA >=1000 mg/dL (Negative); Leukocyte Esterase Urine Negative (Negative); Nitrite Urine Negative (Negative); Specific Gravity - Urine >= 1.030 (1.005-1.025); UMIC TRIGGER UA YES; Urine Blood Negative (Negative); Urine Ketones Negative (Negative); Urine Protein Negative (Neg-Trace)
[2024-05-29 08:32] LABS: Bacteria Urine None Seen (None Seen); Hyaline Casts Urine 0-2 /LPF (0-2); RBC Urine 0-2 /HPF (0-2); Squamous Epithelial Cell Urine 0-2 /HPF (0-2); WBC Urine 0-5 /HPF (0-5)
[2024-05-29 08:36] LABS: Alanine Aminotransferase 18 U/L (0-40); Albumin Level 3.9 g/dL (3.5-5.0); Alkaline Phosphatase 84 U/L (39-117); Anion Gap 12 (12-20); Aspartate Amino Transferase 16 U/L (5-37); Bilirubin Total 0.6 mg/dL (0.0-1.0); Blood Urea Nitrogen 23 mg/dL (9-16); Calcium 9.7 mg/dL (8.4-10.2); Carbon Dioxide 27 mmol/L (22-29); Chloride 104 mmol/L (96-108); Cholesterol 124 mg/dL (<200); Estimated Glomerular Filt Rate > 60; Glucose Fasting 292 mg/dL (60-99); HDL Cholesterol 44 mg/dL (>40); LDL Cholesterol Calculated 60 mg/dL (<100); Potassium 4.4 mmol/L (3.3-5.1); Sodium 139 mmol/L (135-145); Total Protein 6.6 g/dL (6.5-8.0); Triglycerides 100 mg/dL (<150)
[2024-05-29 08:48] LABS: Creatinine Urine 63.56 mg/dL; Microalbumin Urine < 5.0 mg/L
[2024-05-29 08:56] LABS: Prostate Specific Antigen 2.15 ng/mL (<0.05-4.0)
== END 2024-05-29 07:38 | disposition home or self-care (01) ==
LOC: HO.LAB 07:37
PROVIDERS: PCP Internal Medicine; Visit Provider Internal Medicine
DX: E11.9 Type 2 diabetes mellitus without complications (principal); I10 Essential (primary) hypertension; E78.00 Pure hypercholesterolemia, unspecified; Z12.5 Encounter for screening for malignant neoplasm of prostate
CPT/HCPCS: 36415; 80053; 80061; 81001; 82570; 83036; 84153; 85025

== ENCOUNTER 2024-09-08 09:25 | Day surgery (SDC) | payer MEDICARE, SELFPAY ==
[2024-09-04 14:23] VITALS: BMI 26.9
--- NOTE | 2024-09-05 09:25 | P.CONAN_ITS ---
HPI - Anesthesia Eval Consult details Narrative: 74yo M for Colonoscopy Anesthesia Pre-Procedure Meds Is the patient on any of the following meds?: GLP1/DPP4 and SGLT2 Inhib PMFSH Past Medical History Medical History (Updated 09/12/24 @ 09:49 by Remy Bryan MD) Overweight (BMI 25.0-29.9) Vitamin D deficiency Mixed hyperlipidemia Essential hypertension Diabetes mellitus Peptic ulcer Skin cancer H pylori ulcer GERD (gastroesophageal reflux disease) Hiatal hernia Duodenal ulcer Gastritis Arrhythmia History of ETT History of skin cancer Elevated cholesterol HTN (hypertension) Family History Family history of problems with anesthesia: No Surgical History Surgical History (Updated 09/12/24 @ 09:36 by Remy Bryan MD) Hx of local excision of skin lesion History of esophagogastroduodenoscopy (EGD) Hx of colonoscopy History of Problems with Anesthesia: No Social History Social History Housing: House Are you a primary landcare facilitator to a significant other at home: No Do you presently have visiting nurse or other home services: No Patient Tobacco Use Status: Never used Tobacco e-Cigarette/Vaping Use: Never Used service: No Current occupational status: retired Current occupational exposures/hazards: No Cognitive needs: No Hearing needs: No Vision needs: No Meds Allergies Allergy/AdvReac Type Severity Reaction Status Date / Time simvastatin Allergy Unknown Verified 09/12/24 09:23 Home Medications ?Medication ?Instructions ?Recorded ?Confirmed ?Last Taken ?Type atorvastatin 40 mg tablet 40 mg PO DAILY 12/05/22 09/12/24 Unknown History carvedilol 6.25 mg tablet 6.25 mg PO BID 12/05/22 09/12/24 09/08/24 History cholecalciferol (vitamin D3) 50 50 mcg PO DAILY 12/05/22 09/12/24 Unknown History mcg (2,000 unit) tablet (Vitamin D3) coenzyme Q10 100 mg capsule 300 mg PO DAILY 12/05/22 09/12/24 Unknown History (CoQ-10) cyanocobalamin (vitamin B-12) 1,000 mcg PO DAILY 12/05/22 09/12/24 Unknown History 1,000 mcg tablet (Vitamin B-12) glipizide 10 mg tablet 10 mg PO BID 12/05/22 09/12/24 Unknown History metformin 500 mg tablet 1,000 mg PO DAILY 12/05/22 09/12/24 Unknown History sitagliptin phosphate 50 mg tablet 100 mg PO DAILY 12/05/22 09/12/24 09/04/24 History (Januvia) valsartan 320 1 tab PO DAILY 12/05/22 09/12/24 Unknown History mg-hydrochlorothiazide 12.5 mg tablet empagliflozin 25 mg tablet 25 mg PO DAILY 09/04/24 09/12/24 09/04/24 History (Jardiance) Exam Height,Weight and Vital Signs: Height 5 ft 10.5 in Weight 86.183 kg Assessment and Plan Assessment Anesthesia Assessment: Chart Reviewed Final Anesthetic Review Family History of Problems with Anesthesia: No History of Problems with Anesthesia: No
--- NOTE | 2024-09-08 10:17 | P.CONAN_ITS ---
[facility] Past Medical History Medical History Peptic ulcer Skin cancer H pylori ulcer GERD (gastroesophageal reflux disease) Hiatal hernia Duodenal ulcer Gastritis Arrhythmia History of ETT History of skin cancer Diabetes Elevated cholesterol HTN (hypertension) Functional capacity: independent ambulation Family History Family history of problems with anesthesia: No Surgical History Surgical History Hx of local excision of skin lesion History of esophagogastroduodenoscopy (EGD) Hx of colonoscopy History of Problems with Anesthesia: No Social History Social History Patient Tobacco Use Status: Never used Tobacco Advance Directives: No Advance Directives Information Provided: Yes Meds Allergies Allergy/AdvReac Type Severity Reaction Status Date / Time simvastatin Allergy Unknown Verified 12/05/22 12:57 Active Medications: Current Medications Lactated Ringer's (Lr) 1,000 mls @ 100 mls/hr IVCONT .Q10H MIKE Sodium Biphosphate/Sodium Phosphate (Sodium Phosphate,[place] 133 Ml Enema) 133 ml PA ONCE PRN PRN Reason: Poor Colonoscopy Prep Results Home Medications ?Medication ?Instructions ?Recorded ?Confirmed ?Last Taken ?Type atorvastatin 40 mg tablet 40 mg PO DAILY 12/05/22 09/04/24 Unknown History carvedilol 6.25 mg tablet 6.25 mg PO BID 12/05/22 09/04/24 Unknown History cholecalciferol (vitamin D3) 50 50 mcg PO DAILY 12/05/22 09/04/24 Unknown History mcg (2,000 unit) tablet (Vitamin D3) coenzyme Q10 100 mg capsule 300 mg PO DAILY 12/05/22 09/04/24 Unknown History (CoQ-10) cyanocobalamin (vitamin B-12) 1,000 mcg PO DAILY 12/05/22 09/04/24 Unknown History 1,000 mcg tablet (Vitamin B-12) glipizide 10 mg tablet 10 mg PO BID 12/05/22 09/04/24 Unknown History metformin 500 mg tablet 1,000 mg PO DAILY 12/05/22 09/04/24 Unknown History sitagliptin phosphate 50 mg tablet 100 mg PO DAILY 12/05/22 09/04/24 Unknown History (Januvia) valsartan 320 1 tab PO DAILY 12/05/22 09/04/24 Unknown History mg-hydrochlorothiazide 12.5 mg tablet aspirin 81 mg tablet,delayed 81 mg PO DAILY 09/04/24 09/04/24 Unknown History release empagliflozin 25 mg tablet 25 mg PO DAILY 09/04/24 09/04/24 Unknown History (Jardiance) Exam Height,Weight and Vital Signs: Height 5 ft 10.5 in Weight 86.183 kg Airway Mallampati Class: II TM Dist: >3cm Assessment and Plan Final Anesthetic Review Family History of Problems with Anesthesia: No History of Problems with Anesthesia: No
[2024-09-08 10:18] VITALS: BMI 26.2
[2024-09-08] MEDS: Lactated Ringers 1,000 ML 100 ML IVCONT (10:24)
[2024-09-08 10:35] VITALS: BP 145/79; PULSE 64; RESP 18; TEMP 36.7; O2SAT 98
[2024-09-08 10:54] LABS: Glucose, Whole Blood 223 mg/dL (60-115)
--- NOTE | 2024-09-08 10:55 | PC.NURSE ---
dr. roper aware of poc results. ok to proceed. no interventions at this time.
--- NOTE | 2024-09-08 11:38 | HO.ANESPROP2 ---
[facility] Past Medical History Medical History Peptic ulcer Skin cancer H pylori ulcer GERD (gastroesophageal reflux disease) Hiatal hernia Duodenal ulcer Gastritis Arrhythmia History of ETT History of skin cancer Diabetes Elevated cholesterol HTN (hypertension) Functional capacity: independent ambulation Family History Family history of problems with anesthesia: No Surgical History Surgical History Hx of local excision of skin lesion History of esophagogastroduodenoscopy (EGD) Hx of colonoscopy History of Problems with Anesthesia: No Social History Social History Are you a primary senior caregiver to a significant other at home: No Do you presently have visiting nurse or other home services: No Patient Tobacco Use Status: Never used Tobacco Have you been hit, kicked, punched, or otherwise hurt by someone within the past year? If so, by whom?: No Are you DNR?: No Advance Directives: No Advance Directives Information Provided: Yes Recently lost weight without trying: No Nutrition Risks: No Nutritional Risk Meds Allergies Allergy/AdvReac Type Severity Reaction Status Date / Time simvastatin Allergy Unknown Verified 09/08/24 10:19 Active Medications: Current Medications Lactated Ringer's (Lr) 1,000 mls @ 100 mls/hr IVCONT .Q10H MIKE Last Admin: 09/08/24 10:24 Dose: 100 mls/hr Sodium Biphosphate/Sodium Phosphate (Sodium Phosphate,[place]-Dibasic 133 Ml Enema) 133 ml DC ONCE PRN PRN Reason: Poor Colonoscopy Prep Results Home Medications ?Medication ?Instructions ?Recorded ?Confirmed ?Last Taken ?Type atorvastatin 40 mg tablet 40 mg PO DAILY 12/05/22 09/04/24 Unknown History carvedilol 6.25 mg tablet 6.25 mg PO BID 12/05/22 09/04/24 09/08/24 History cholecalciferol (vitamin D3) 50 50 mcg PO DAILY 12/05/22 09/04/24 Unknown History mcg (2,000 unit) tablet (Vitamin D3) coenzyme Q10 100 mg capsule 300 mg PO DAILY 12/05/22 09/04/24 Unknown History (CoQ-10) cyanocobalamin (vitamin B-12) 1,000 mcg PO DAILY 12/05/22 09/04/24 Unknown History 1,000 mcg tablet (Vitamin B-12) glipizide 10 mg tablet 10 mg PO BID 12/05/22 09/04/24 Unknown History metformin 500 mg tablet 1,000 mg PO DAILY 12/05/22 09/04/24 Unknown History sitagliptin phosphate 50 mg tablet 100 mg PO DAILY 12/05/22 09/04/24 09/04/24 History (Januvia) valsartan 320 1 tab PO DAILY 12/05/22 09/04/24 Unknown History mg-hydrochlorothiazide 12.5 mg tablet empagliflozin 25 mg tablet 25 mg PO DAILY 09/04/24 09/04/24 09/04/24 History (Jardiance) Exam Height,Weight and Vital Signs: Height 5 ft 10.5 in Weight 83.915 kg Last Vital Signs Temp 98.0 F 09/08/24 10:35 Pulse 64 09/08/24 10:35 Resp 18 09/08/24 10:35 BP 145/79 H 09/08/24 10:35 Pulse Ox 98 09/08/24 10:35 O2 Del Method Room Air 09/08/24 10:35 Pertinent Lab Results Pertinent Lab Results: Laboratory Tests 09/08/24 10:26 POC Glucose 223 H Airway Mallampati Class: II TM Dist: >3cm Neck ROM: Full Heart: RRR Lungs: CTA Assessment and Plan Assessment Anesthesia Assessment: Anesthesia Plan Discussed and Chart Reviewed Final Anesthetic Review Family History of Problems with Anesthesia: No History of Problems with Anesthesia: No NPO: Yes ASA Class: III Final Preanesthetic Review: Meds/Allgs Chart Reviewed, Consent Obtained/Reviewed and Anes Risks/Benef Reviewed Patient Risk: Intermediate Procedure Risk: Low Anesthetic Plan Anesthetic Plan: MAC: Disposition: Standard PACU
[2024-09-08 12:06] VITALS: BP 103/63; PULSE 75; RESP 16; TEMP 36.9; O2SAT 98
--- NOTE | 2024-09-08 12:10 | P.BOP_ITS ---
Brief Operative Note Date of Service: 09/08/24 Pre-op diagnosis: Screening Post-op diagnosis: other (Colon polyps) Procedure: Colonoscopy to the cecum with cold snare polypectomy x 2 Surgeon: Nikolai Torres MD Anesthesia: MAC Was an Core Cutter And Reamer used for this Procedure?: No Estimated blood loss (mL): 2.0 Pathology: other (A. Ascending colon polyp B. Polyp at 50cm) Condition: stable Disposition: PACU
[2024-09-08 12:21] VITALS: BP 110/67; PULSE 73; RESP 16; TEMP 36.9; O2SAT 98
--- NOTE | 2024-09-08 22:46 | OP_ITS ---
DATE OF SERVICE: 09/08/2024 SURGEON: Nikolai Torres MD INDICATIONS: The patient presents for evaluation of personal history of tubular adenoma of the colon and need for colorectal cancer screening. Full consent has been obtained from him for this, including risks of bleeding and perforation. PREOPERATIVE DIAGNOSIS: POSTOPERATIVE DIAGNOSIS: PROCEDURE PERFORMED: Colonoscopy to the cecum with cold snare polypectomy x2. ESTIMATED BLOOD LOSS: COMPLICATIONS: ANESTHESIA: Medications used, monitored anesthesia care. ASSISTANTS: SPECIMENS: PREOPERATIVE DIAGNOSES: Colorectal cancer screening and history of tubular adenoma of the colon. POSTOPERATIVE DIAGNOSES: Colorectal cancer screening and history of tubular adenoma of the colon, colon polyps, diverticulosis, and internal hemorrhoids. DESCRIPTION OF PROCEDURE: The patient was placed in the left lateral decubitus position. The digital rectal exam revealed no abnormalities. The Olympus video pediatric colonoscope was entered into the rectum and advanced to the cecum with the assistance of abdominal wall pressure. Once in the cecum, I did identify normal-appearing cecal pouch with appendiceal orifice and a normal-appearing ileocecal valve. The entire cecum and ileocecal valve appeared normal. Scope was slowly withdrawn assessing all mucosal surfaces carefully. Preparation was excellent. There was transillumination of light deep in the right lower quadrant. In the proximal ascending colon was an approximately 6 to 8 mm polyp on a fold, which was removed by cold snare polypectomy, recovered by suction. The polypectomy site appeared clean, without any sign of residual polyp nor significant bleeding. At 50 cm was an approximately 8 mm polyp, which was removed by cold snare polypectomy and recovered by suction. The polypectomy site appeared clean, without any sign of residual polyp nor significant bleeding. I did not visualize any other polyps, colitis, nor angiodysplasia. There was a mild to moderate amount of sigmoid diverticulosis. In the rectum, scope was retroflexed visualizing internal hemorrhoids, but no other pathology. The rectal mucosa appeared normal. Scope was straightened and withdrawn from the patient. He tolerated the procedure well and was returned to the recovery area in stable condition. IMPRESSION: 1. Colon polyps. 2. Diverticulosis. 3. Internal hemorrhoids. PLAN: The results of the pathology will be checked he will continue to stay off all aspirin and NSAIDs long-term given his previous history of duodenal ulcers. Given these findings and his age, I do not think he would need any further screening colonoscopies. As such, he will otherwise see me on a p.r.n. basis. MD KM Arrieta/NAHUN / [phone]
== END 2024-09-08 13:06 | disposition home or self-care (01) ==
PROVIDERS: PCP Internal Medicine; Visit Provider Internal Medicine
PROC: 0DJD8ZZ Inspection of Lower Intestinal Tract, Via Natural or Artificial Opening Endoscopic (ICD-10-PCS; CPT 45378; principal; 2024-09-08 10:40)
DX: Z12.11 Encounter for screening for malignant neoplasm of colon (principal); Z86.0101 Personal history of adenomatous and serrated colon polyps; D12.2 Benign neoplasm of ascending colon; D12.5 Benign neoplasm of sigmoid colon; K57.30 Diverticulosis of large intestine without perforation or abscess without bleeding; K64.8 Other hemorrhoids; I10 Essential (primary) hypertension; E78.5 Hyperlipidemia, unspecified; E11.9 Type 2 diabetes mellitus without complications; Z87.11 Personal history of peptic ulcer disease; Z79.84 Long term (current) use of oral hypoglycemic drugs; Z79.82 Long term (current) use of aspirin; Z79.899 Other long term (current) drug therapy; Z88.8 Allergy status to other drugs, medicaments and biological substances
CPT/HCPCS: 45385; 82947; 88305; J2003; J2704

== ENCOUNTER 2024-09-12 09:03 | Outpatient (AMB) | payer MEDICARE, SELFPAY ==
[2024-09-12 09:09] VITALS: BP 110/76; PULSE 70; O2SAT 98; BMI 26.8
--- NOTE | 2024-09-12 09:09 | A.OFFPC_ITS ---
Vital Signs 09/12/24 09:09 Height 5 ft 10.5 in Weight 189 lb 6 oz BMI 26.8 BP 110/76 Blood Pressure Location Lt brachial Position Sitting Pulse 70 Pulse Source Pulse Oximeter Pulse Oximetry (%) 98 Oxygen Delivery Method Room Air Intake Visit Reasons: Establish Care-previous [facility] patient Rehab Care Assistant Required: No Accompanied by: Self / Same As Patient Allergies simvastatin Allergy (Verified 09/12/24 09:23) Unknown Medication List - Last Reconciled 09/12/24 by Remy Bryan MD atorvastatin 40 mg PO DAILY carvedilol 6.25 mg PO BID cholecalciferol (vitamin D3) (Vitamin D3) 50 mcg PO DAILY coenzyme Q10 (CoQ-10) 300 mg PO DAILY cyanocobalamin (vitamin B-12) (Vitamin B-12) 1,000 mcg PO DAILY empagliflozin (Jardiance) 25 mg PO DAILY glipizide 10 mg PO BID metformin 1,000 mg PO DAILY sitagliptin phosphate (Januvia) 100 mg PO DAILY valsartan-hydrochlorothiazide 320-12.5 mg 1 tab PO DAILY Tobacco use date assessed: 09/12/24 Fall risk assessment: No Falls in past year Last assessed Fall Risk: 09/12/24 Dental Screening Dental Screen Date: 09/12/24 Did you have a dental visit in the last 12 months?: Yes Did you have a dental problem in the last 6 months where you did not have access to dental care?: No Was dental information given to patient?: Patient has dentist HPI Establish Care-previous [facility] patient HPI Details Patient comes in today to establish care - he is transferring over from Dr. Craig, who recently retired from active practice Patient states that he feels okay States that he just had his repeat colonoscopy done this past Sunday with Dr. Torres and he was found to have some polyps again that were removed He denies any headaches or dizziness Denies any chest pains, no SOB No nausea/vomiting, no abdominal pain No change in bowel habits noted He has not yet gotten his follow up labs done - states that Dr. Craig wanted him to get them done towards the end of the month [facility] Medical History (Updated 09/12/24 @ 09:49 by Remy Bryan MD) Overweight (BMI 25.0-29.9) Vitamin D deficiency Mixed hyperlipidemia Essential hypertension Diabetes mellitus Peptic ulcer Skin cancer H pylori ulcer GERD (gastroesophageal reflux disease) Hiatal hernia Duodenal ulcer Gastritis Arrhythmia History of ETT History of skin cancer Elevated cholesterol HTN (hypertension) Surgical History (Updated 09/12/24 @ 09:36 by Remy Bryan MD) Hx of local excision of skin lesion History of esophagogastroduodenoscopy (EGD) Hx of colonoscopy Social History Housing: House Are you a primary day care supervisor to a significant other at home: No Do you presently have visiting nurse or other home services: No Patient Tobacco Use Status: Never used Tobacco e-Cigarette/Vaping Use: Never Used service: No Current occupational status: retired Current occupational exposures/hazards: No Cognitive needs: No Hearing needs: No Vision needs: No Questionnaire PHQ-9 Over the last 2 weeks, how often have you been bothered by any of the following problems? 1. Little interest or pleasure in doing things: not at all 2. Feeling down, depressed, or hopeless: not at all 3. Trouble falling or staying asleep, or sleeping too much: not at all 4. Feeling tired or having little energy: not at all 5. Poor appetite or overeating: not at all 6. Feeling bad about yourself - or that you are a failure or have let yourself or your family down: not at all 7. Trouble concentrating on things, such as reading the newspaper or watching television: not at all 8. Moving or speaking so slowly that other people could have noticed. Or the opposite - being so fidgety or restless that you have been moving around a lot more than usual: not at all 9. Thoughts that you would be better off or of hurting yourself in some way: not at all Total score: 0 Depression Screening Interpretation: Negative Depression Screening Done: Yes 91960 - PHQ-9 Billing: Yes Source: Developed by Drs. Nikolai Adan, Yodit Iverson, Richy Brown and colleagues, with an educational tesha from [employer] Thrive Questionnaire Date Thrive assessed: 09/12/24 I am a: Patient What is your living situation today?: I have a steady place to live Within the past 12 months, did the food you bought not last and you didn't have the money to get more?: Never true Within the past 12 months, did you worry whether your food would run out before you got money to buy more?: Never true Do you have trouble paying for medicines?: No Do you have trouble getting transportation to medical appointments?: No Do you have trouble paying your heating and electricity bill?: No Do you have trouble taking care of your child, family member or friend?: No Do you have trouble with day-to-day activities such as bathing, preparing meals, shopping, managing finances, etc.?: No Are you currently unemployed and looking for a job?: No Are you interested in more education?: No Please select the resources that you would like help with: Housing/Snf and None Currently or been in a relationship where the following occur: No concerns reported THRIVE Score: 0 AUDIT C Alcohol Use Questionnaire (AUDIT-C) 1. How often do you have a drink containing alcohol?: 2-3 times a week 2. How many drinks containing alcohol do you have on a typical day when you are drinking?: 1 or 2 3. How often do you have six or more drinks on one occasion?: Never Total Score: 3 Score Reviewed/Action Taken: Yes ANDREY-7 AMB Questionnaire ANDREY-7 Date ANDREY - 7 assessed: 09/12/24 Feeling nervous, anxious, or on edge: 0 = Not at all Not being able to stop or control worryin = Not at all Worrying too much about different things: 0 = Not at all Trouble relaxin = Not at all Being so restless that it is hard to sit still: 0 = Not at all Becoming easily annoyed or irritable: 0 = Not at all Feeling afraid as if something awful might happen: 0 = Not at all Total ANDREY-7 score (0-4 normal; 5-9 mild; 10-14 moderate; 15-21 severe): 0 Source: Developed by Drs. Nikolai Adan, Yodit Iverson, Richy Brown and colleagues, with an educational tesha from [employer] Review of Systems Const Denies chills, Denies fatigue, Denies fever(s) and Denies headache(s) ENT Denies dysphagia, Denies dizziness, Denies otalgia, Denies headache(s), Denies neck pain, Denies odynophagia and Denies sore throat Card Denies chest pain, Denies palpitations and Denies dyspnea Resp Denies cough and Denies dyspnea GI Denies abdominal pain, Denies constipation, Denies dysphagia, Denies heartburn, Denies diarrhea, Denies nausea, Denies odynophagia and Denies vomiting Denies difficulty urinating, Denies dysuria, Denies nocturia and Denies urinary frequency Musc Denies back pain, Denies arthralgias and Denies neck pain Skin/Breast Denies rash Neuro Denies dizziness and Denies headache(s) Endo Denies fatigue and Denies palpitations Physical exam (Primary Care) Vital Signs: Last Vital Signs Pulse 70 09/12/24 09:09 BP 110/76 09/12/24 09:09 Pulse Ox 98 09/12/24 09:09 Oxygen Delivery Method Room Air 09/12/24 09:09 BMI result Body Mass Index 26.8 Tobacco/Smoking Status: Tobacco use Status Tobacco use date assessed 09/12/24 09/12/24 09:14 Patient Tobacco Use Status Never used Tobacco 09/12/24 09:14 e-Cigarette/Vaping Use Never Used 09/12/24 09:14 PHQ-9: PHQ-9 Score PHQ-9: Total score 0 09/12/24 09:41 Depression Screening Interpretation: Negative Thrive Assessment: Date of Thrive Assessment Date Thrive assessed 09/12/24 09/12/24 09:14 Currently or been in a relationship where the following occur: No concerns reported Const General: no acute distress and alert HENMT Ears: TM's normal bilaterally and EAC's normal Throat: Yes posterior oropharynx normal and Yes tonsils normal (no TP congestion) Neck Neck: Yes supple and No lymphadenopathy Thyroid: Thyroid normal Resp Auscultation: clear to auscultation bilaterally, no rales and no wheezes Cardio Rate: regular rate Rhythm: regular rhythm Heart sounds: no murmurs GI Palpation (GI): Soft to palpation and nontender Auscultation: normal bowel sounds General: Yes no CVA tenderness Back/Spine/Pelvis Back: no CVA tenderness Thoracic/Lumbar Spine: No lumbar spinal tenderness Skin Rashes: no rashes Extrem General: Yes no clubbing, cyanosis or edema Coding Level of Care Code New Pt Level 4 (75027) Complex EM visit Add On G2211 Diagnoses Type 2 diabetes mellitus with hyperglycemia, without long-term current use of insulin E11.65 Diabetes mellitus complication status: with hyperglycemia Diabetes mellitus detention insulin use: without regional intermodal truck driver use Diabetes mellitus type: type 2 Essential hypertension I10 Mixed hyperlipidemia E78.2 Vitamin D deficiency E55.9 Gastroesophageal reflux disease without esophagitis K21.9 Esophagitis presence: without esophagitis Overweight (BMI 25.0-29.9) E66.3 Additional Codes PHQ-9 - 37577 - PHQ-9 Billing: Yes ([id number]) Assessment & Plan Assessment & Plan (1) Diabetes mellitus: Code(s): E11.9 - Type 2 diabetes mellitus without complications Category: Medical Qualifiers: Diabetes mellitus complication status: with hyperglycemia Diabetes mellitus detention insulin use: without regional intermodal truck driver use Diabetes mellitus type: type 2 Qualified Code(s): E11.65 - Type 2 diabetes mellitus with hyperglycemia Plan: His HgbA1c was at 8.6% when last checked on 05/29/2024 - goal is at least <7.0% Reinforced diabetic diet Continue Jardiance 25 mg QD, Glipizide 10 mg BID, Metformin 1000 mg QD and Januvia 100 mg QD He is reminded to get his previously ordered labs (by Dr. Craig) done VIOL[place] and he does not necessarily have to wait until the end of the month (2) Essential hypertension: Code(s): I10 - Essential (primary) hypertension Category: Medical Plan: Reinforced low sodium diet - goal is systolic BP of 120 to 130 mm or less Continue Valsartan-HCT 320-12.5 mg QD and Carvedilol 6.25 mg BID Patient is reminded to continue monitoring his blood pressure regularly (3) Mixed hyperlipidemia: Code(s): E78.2 - Mixed hyperlipidemia Category: Medical Plan: He is advised to get his follow up labs done [place]OL[place] and we will reach out to him if any of his labs come back with unexpected results Reinforced low cholesterol diet Continue Atorvastatin 40 mg QD Will recheck his labs and fasting lipids in 4 months for follow up (4) Vitamin D deficiency: Code(s): E55.9 - Vitamin D deficiency, unspecified Category: Medical Plan: Continue Vitamin D3 2000 units QD (5) GERD (gastroesophageal reflux disease): Code(s): K21.9 - Gastro-esophageal reflux disease without esophagitis Category: Medical Qualifiers: Esophagitis presence: without esophagitis Qualified Code(s): K21.9 - Gastro-esophageal reflux disease without esophagitis Plan: Dietary restrictions reinforced States that he just takes some OTC H2 blockers when needed for symptomatic relief (6) Overweight (BMI 25.0-29.9): Code(s): E66.3 - Overweight Category: Medical Plan: Reinforced diet/exercise as tolerated/lose weight Plan Follow up in 4 months Orders: Orders Hemoglobin A1c 4 Months E11.9 - Type 2 diabetes mellitus without complications Comprehensive [place]. Panel Fast 4 Months E78.00 - Pure hypercholesterolemia, un specified Lipid Panel 4 Months E78.00 - Pure hypercholesterolemia, unspecified Microalbumin, Random (w Creat) 4 Months E11.9 - Type 2 diabetes mellitus without complications Vitamin B12 and Folate 4 Months E53.8 - Deficiency of other specified B group vitamins Complete Blood Count Auto Diff 4 Months D64.9 - Anemia, unspecified TSH reflex Free T4 4 Months E78.00 - Pure hypercholesterolemia, unspecified UA CC w/rflx Micro + Cult 4 Months R30.0 - Dysuria Vitamin D 25-OH Total 4 Months E55.9 - Vitamin D deficiency, unspecified
--- OUTSIDE RECORDS SUMMARY | 2024-09-12 09:45 | XMS_ITS ---
Author Organization [facility] Address [address] [place] [id number] Care Team Providers Care [employer] Professor Name Role Phone Marcelo Craig MD Primary Care Provider Nikolai Castillo [phone] Medications Medication SIG (Take, Route, Fr equency, Duration) Notes Start Date End Date Status Omeprazole 20 MG 1 every morning Oral ly Once a day for 90 days 06/12/2023 Active Encounters Encounter Location Date Provider Diagnosis [facility] [address] [facility] [facility] [address] [place] [phone] 06/12/2023 Nikolai Torres Plan Of Treatment Medication Medication Name Sig Start Date Stop Date Notes Omeprazole 20 MG 1 every morning Oral ly Once a day for 90 days 06/12/2023 Progress Notes * LARY WHEAT ADOB:[birth year] (72 yo M)Acc No.[id number]:06/12/2023 Patient:?JARRETNATO CRUZANTONIETA Soni :1950???Age:72 Y???Sex:Male Address:[address] [place] [id number] * Refills? Start Omeprazole Capsule Delayed Release, 20 MG, Orally, 90, 1 every morning, Once a day, 90 days, Refills=3 * true * Date:? Generated for Mak torres/Sonja/eTransmitting on:?09/12/2024 09:45 AM EDT
--- OUTSIDE RECORDS SUMMARY | 2024-09-12 09:45 | XMS_ITS ---
Author Organization [facility] Address [address] [place] [address] Care Team Providers Care Director Paid Media Name Role Phone Marcelo Craig MD Primary Care Provider Nikolai Castillo Unavailable [phone] Allergies Allergen (clinical drug ingredient) Drug/Non Drug Allergy documented on EMR Reaction Allergy Type Onset Date Status Simvastatin Unknown Drug Allergy Activ e REASON FOR VISIT Patient presents today for a recall colonoscopy Medications Medication SIG (Take, Route, Frequency, Duration) Notes Start Date End Date Status Atorvastatin Calcium 40 MG 1 tablet Oral ly Once a day Active Valsartan-hydroCHLOROthiazi de 320-12.5 MG 1 tablet Orally Once a day Active glipiZIDE 5 MG 2 tablet 30 minutes before breakfast bid Active metFORMIN HCl 500 MG 2 tablet with a luc l twice a day Active Carvedilol 6.25 MG as directed Orally t wice a day Active Januvia 100 MG 1 tablet Orally Once a day Active Co Q 10 300 1 capsule with a luc l Orally Once a day Active Jardiance 25 MG 1 tablet Orally Once a day for 30 day(s) Active Omeprazole 20 MG TAKE 1 CAPSULE ONCE DAILY EVERY MORNING for 90 Active Vitamin D3 50 1 tablet Orally Once a day Active Vitamin B12 1000 MCG 1 tablet Orally Onc e a day Active Social History Alcohol Screen Question Answer Notes Did you have a drink contain ing alcohol in the past year? Yes How often did you have a dri nk containing alcohol in the past year? Never (0 point) How many drinks did you have on a typical day when you were drinking in the past year? 1 or 2 drinks (0 point) How often did you have 6 or more drinks on one occasion in the past year? Never (0 point) Points 0 Interpretation Negative Section Notes: Nonsmoker; 1 or 2 glasses of wine occasional Problems Problem Type SNOMED Code ICD Code Onset Dates Problem Status W/U Status Risk Notes Problem Personal history of adenomatous and serrated colon polyps (Z86.0101) Active confirmed Vital Signs Blood pressure systolic 00 mm Hg 05/29/20 24 Blood pressure diastolic 00 mm Hg 024 Height 70.5 in 05/29/2024 Weight 190 lbs 05/29/2024 BMI 26.87 kg/m2 05/29/2024 Encounters Encounter Location Date Provider Diagnosis [facility] [address] [place] [address] 05/29/2024 Nikolai Torres Hx of adenomatous colonic polyps Z86.010 ; Duodenal ulcer disease K26.9 ; Encounter for screening for malignant neoplasm of colon Z12.11 and Preprocedural examination Z01.818 Assessments Encounter Date Diagnosis (ICD Code) Assessment Notes Treatment Notes Treatment Clinical Notes Section Notes 05/29/2024 Hx of adenomatous colonic polyps (ICD-10 - Z86.010) Overall, Sander appears quite well. I did advise him to certainly continue his daily omeprazole as it seems to be working well in regard to his previous history of peptic ulcer disease. Based on his clinical history and excellent clinical appearance I don't think a repeat upper endoscopy is required. I did advise him to continue to avoid aspirin and NSAIDs long-term given the previous history of peptic ulcer disease with multiple duodenal ulcers. I did recommend a followup colonoscopy for screening given his history of tubular adenomas and his last colonoscopy being over 5 years ago. We did review the rationale for that in regard to colon cancer prevention. Full consent was obtained for this, including risks of bleeding and perforation. The procedure will be done with monitored anesthesia care. He was given detailed instructions regarding adjustment of his four diabetes medications. Sander was comfortable with this plan. Thank you again for allowing me to participate in Sander's care. I shall continue to keep you advised of his progress. 05/29/2024 Duodenal ulcer disease (ICD-10 - K26.9) Overall, Sander appears quite well. I did advise him to certainly continue his daily omeprazole as it seems to be working well in regard to his previous history of peptic ulcer disease. Based on his clinical history and excellent clinical appearance I don't think a repeat upper endoscopy is required. I did advise him to continue to avoid aspirin and NSAIDs long-term given the previous history of peptic ulcer disease with multiple duodenal ulcers. I did recommend a followup colonoscopy for screening given his history of tubular adenomas and his last colonoscopy being over 5 years ago. We did review the rationale for that in regard to colon cancer prevention. Full consent was obtained for this, including risks of bleeding and perforation. The procedure will be done with monitored anesthesia care. He was given detailed instructions regarding adjustment of his four diabetes medications. Sander was comfortable with this plan. Thank you again for allowing me to participate in Sander's care. I shall continue to keep you advised of his progress. 05/29/2024 Encounter for screening for malignant neoplasm of colon (ICD-10 - Z12.11) DO NOT USE JANUVIA OR JARDIANCE FOR THREE FULL DAYS BEFORE THE COLONOSCOPY DO NOT USE THE METFORMIN OR GLIPIZIDE THE NIGHT BEFORE OR ON THE MORNING OF THE COLONOSCOPY Overall, Sander appears quite well. I did advise him to certainly continue his daily omeprazole as it seems to be working well in regard to his previous history of peptic ulcer disease. Based on his clinical history and excellent clinical appearance I don't think a repeat upper endoscopy is required. I did advise him to continue to avoid aspirin and NSAIDs long-term given the previous history of peptic ulcer disease with multiple duodenal ulcers. I did recommend a followup colonoscopy for screening given his history of tubular adenomas and his last colonoscopy being over 5 years ago. We did review the rationale for that in regard to colon cancer prevention. Full consent was obtained for this, including risks of bleeding and perforation. The procedure will be done with monitored anesthesia care. He was given detailed instructions regarding adjustment of his four diabetes medications. Sander was comfortable with this plan. Thank you again for allowing me to participate in Sander's care. I shall continue to keep you advised of his progress. 05/29/2024 Preprocedural examination (ICD-10 - Z01.818) Overall, Sander appears quite well. I did advise him to certainly continue his daily omeprazole as it seems to be working well in regard to his previous history of peptic ulcer disease. Based on his clinical history and excellent clinical appearance I don't think a repeat upper endoscopy is required. I did advise him to continue to avoid aspirin and NSAIDs long-term given the previous history of peptic ulcer disease with multiple duodenal ulcers. I did recommend a followup colonoscopy for screening given his history of tubular adenomas and his last colonoscopy being over 5 years ago. We did review the rationale for that in regard to colon cancer prevention. Full consent was obtained for this, including risks of bleeding and perforation. The procedure will be done with monitored anesthesia care. He was given detailed instructions regarding adjustment of his four diabetes medications. Sander was comfortable with this plan. Thank you again for allowing me to participate in Sander's care. I shall continue to keep you advised of his progress. Plan Of Treatment Treatment Notes Assessment Notes Encounter for screening for malignant neoplasm of colon DO NOT USE JANUVIA OR JARDIANCE FOR THREE FULL DAYS BEFORE THE COLONOSCOPY DO NOT USE THE METFORMIN OR GLIPIZIDE THE NIGHT BEFORE OR ON THE MORNING OF THE COLONOSCOPY Future Test Test Name Order Date COLONOSCOPY 05/29/2024 Next Appt Details Follow Up: prn, Reason: Progress Notes * LARY WHEAT ADOB:[birth year] (73 yo M)Acc No.[id number]:05/29/2024 Progress Notes Patient:?LARY WHEAT A Provider:?Nikolai Torres MD :1950???Age:73 Y???Sex:Male Gary e:05/29/2024 Address:[address] [place], [place] [id number] Pcp:Marcelo Craig MD Subjective: * Chief Complaints: * ???Patient presents today fo r a recall colonoscopy * HPI: ???incontinence:? I saw Sander in followup today in regard to his previous history of duodenal ulcers with associated H. pylori infection, personal history of tubular adenomas, and need for colorectal cancer screening. ?Since I last saw Sander in May of 2023 he reports he has been feeling well. He has continued on his daily omeprazole and has not had any recurrence of abdominal pain or reflux symptoms. He remains off aspirin and does not use any NSAIDs. He denies any recurrent symptoms of his previous ulcer disease and specifically denies any change in bowel habits, hematochezia, nor melena. He denies any significant heartburn, dysphagia, early satiety, nausea, nor vomiting. He denies any signs of jaundice or unintentional weight loss. He denies any known family history of colon cancer. ?Laboratories earlier this year revealed a normal CBC, chemistries, and LFTs. * ROS:?General/Constitutional:?Change in appetite?denies.?Chills?denies.?Fatigue?denies.?Ophthalmologic:?Patient denies? Negative..?ENT:?Patient denies?Negative..?Respiratory:?Patient denies?No coughing/hemoptysis..?Cardiovascular:?Patient denies? No chest pain/orthopnea..?Gastrointestinal:?Comments?See HPI for details.?Genitourinary:?Patient denies? No dysuria/hematuria..?Musculoskeletal:?Patient denies? No specific arthralgias/myalgias..?Skin:?Patient denies?No rash/pruritus..?Neurologic:?Patient denies? No headaches/seizures..?Psychiatric:?Patient denies?Negative..? * Medical History:? * Surgical History:?skin cance r removal ear and cheek * Hospitalization/Major Diagno stic Procedure:?No Hospitalization History. * Family History:?Father: dece ased.?Mother: .? No colorectal cancer. * Social History:?Tobacco Use:?Tobacco Use/Smoking?Are you a: nonsmoker.?Drugs/Alcohol:?Alcohol Screen?Did you have a drink containing alcohol in the past year??Yes,?How often did you have a drink containing alcohol in the past year??Never (0 point),?How many drinks did you have on a typical day when you were drinking in the past year??1 or 2 drinks (0 point),?How often did you have 6 or more drinks on one occasion in the past year??Never (0 point),?Points?0,?Interpretation?Negative.?Miscellaneous:?Marital status: . Occupation: retired. ???Nonsmoker; 1 or 2 glasses of wine occasional. * Medications:?TakingJardiance 25 MG Tablet 1 tablet Orally Once a dayCarvedilol 6.25 MG Tablet as directed Orally twice a daymetFORMIN HCl 500 MG Tablet 2 tablet with a meal twice a dayglipiZIDE 5 MG Tablet 2 tablet 30 minutes before breakfast bidValsartan-hydroCHLOROthiazide 320-12.5 MG Tablet 1 tablet Orally Once a dayAtorvastatin Calcium 40 MG Tablet 1 tablet Orally Once a dayVitamin B12 1000 MCG Tablet Extended Release 1 tablet Orally Once a dayVitamin D3 50 mcg 1 tablet Orally Once a dayCo Q 10 300 mg 1 capsule with a meal Orally Once a dayJanuvia 100 MG Tablet 1 tablet Orally Once a dayOmeprazole 20 MG Capsule Delayed Release TAKE 1 CAPSULE ONCE DAILY EVERY MORNING Taking Jardiance 25 MG Tablet 1 tablet Orally Once a dayTaking Carvedilol 6.25 MG Tablet as directed Orally twice a dayTaking metFORMIN HCl 500 MG Tablet 2 tablet with a meal twice a dayTaking glipiZIDE 5 MG Tablet 2 tablet 30 minutes before breakfast bidTaking Valsartan-hydroCHLOROthiazide 320- 12.5 MG Tablet 1 tablet Orally Once a dayTaking Atorvastatin Calcium 40 MG Tablet 1 tablet Orally Once a dayTaking Vitamin B12 1000 MCG Tablet Extended Release 1 tablet Orally Once a dayTaking Vitamin D3 50 mcg 1 tablet Orally Once a dayTaking Co Q 10 300 mg 1 capsule with a meal Orally Once a dayTaking Januvia 100 MG Tablet 1 tablet Orally Once a dayTaking Omeprazole 20 MG Capsule Delayed Release TAKE 1 CAPSULE ONCE DAILY EVERY MORNING DiscontinuedAspirin 81 MG Tablet Chewable 1 tablet Orally Once a dayMedication List reviewed and reconciled with the patientDiscontinued Aspirin 81 MG Tablet Chewable 1 tablet Orally Once a dayMedication List reviewed and reconciled with the patient * Allergies:?Simvastatinyes[Hiram jarquin Verified] Objective: * Vitals:?Wt: 190 lbs, Ht: 70. 5 in, BMI:26.87 Index, BP: 00/00 mm Hg. * Examination: ???General Examination: ?GENERAL APPEARANCE:?pleasant, well nourished, well developed, in no acute distress.?EYES:?sclera non-icteric.?ORAL CAVITY:?mucosa moist.?NECK/THYROID:?no cervical lymphadenopathy, neck supple.?SKIN:?nonjaundiced, no spider angiomata..?HEART:?S1, S2 normal.?LUNGS:?clear to auscultation bilaterally.?ABDOMEN:?normal bowel sounds, no guarding or rigidity, no hepatosplenomegaly, no masses palpable, soft, nontender, nondistended..?EXTREMITIES:?no edema.?NEUROLOGIC:?alert and oriented.? Assessment: * Assessment: 1.?Duodenal ulcer disease - K26.9 (Primary)?2.?Hx of adenomatous colonic polyps - Z86.010?3.?Encounter for screening for malignant neoplasm of colon - Z12.11?4.?Preprocedural examination - Z01.818? Overall, Sander appears quite w ell. I did advise him to certainly continue his daily omeprazole as it seems to be working well in regard to his previous history of peptic ulcer disease. Based on his clinical history and excellent clinical appearance I don't think a repeat upper endoscopy is required. I did advise him to continue to avoid aspirin and NSAIDs long-term given the previous history of peptic ulcer disease with multiple duodenal ulcers. I did recommend a followup colonoscopy for screening given his history of tubular adenomas and his last colonoscopy being over 5 years ago. We did review the rationale for that in regard to colon cancer prevention. Full consent was obtained for this, including risks of bleeding and perforation. The procedure will be done with monitored anesthesia care. He was given detailed instructions regarding adjustment of his four diabetes medications. Sander was comfortable with this plan. Thank you again for allowing me to participate in Sander's care. I shall continue to keep you advised of his progress. Plan: * Treatment: 2.?Encounter for screening for malignant neoplasm of colon?Procedure: COLONOSCOPY (Ordered for 05/29/2024)* with MACsched for 09/09/23 at 12:50 pmmiralax Notes: DO NOT USE JANUVIA OR JARDIANCE FOR THREE FULL DAYS BEFORE THE COLONOSCOPY DO NOT USE THE METFORMIN OR GLIPIZIDE THE NIGHT BEFORE OR ON THE MORNING OF THE COLONOSCOPY? * Procedure Codes:?3017F COLOR ECTAL CA SCREEN DOC [id number] TOBACCO [id number] BP SCR NOT PRFRM REC REASON NOS * Preventive Medicine:? ??Counseling:?Care goal follow-up plan:?Above Normal BMI Follow-up?Giving encouragement to exercise,?BMI management provided?Yes.? ??Screenings:?Fall Risk Screening?Fall Risk Assessment:?No falls in the past year,?Screening:?No falls in the past year,?Assessment:?Not performed, no reason specified,?Plan of Care:?Not documented, no reason specified.? * Follow Up:?prn * * Sign off status: Completed true * Provider:?Nikolai Torres MD Date:? 024 Generated for Mak torres/Sonja/eTransmitting on:?09/12/2024 09:45 AM EDT History and Physical Notes * HPI (History of Present Illness) Category Sub-Category Detail Notes Category Not es incontinence I saw Sander in followup today in regard to his previous history of duodenal ulcers with associated H. pylori infection, personal history of tubular adenomas, and need for colorectal cancer screening. Since I last saw Sander in May of 2023 he reports he has been feeling well. He has continued on his daily omeprazole and has not had any recurrence of abdominal pain or reflux symptoms. He remains off aspirin and does not use any NSAIDs. He denies any recurrent symptoms of his previous ulcer disease and specifically denies any change in bowel habits, hematochezia, nor melena. He denies any significant heartburn, dysphagia, early satiety, nausea, nor vomiting. He denies any signs of jaundice or unintentional weight loss. He denies any known family history of colon cancer. Laboratories earlier this year revealed a normal CBC, chemistries, and LFTs. Examination Category Sub-Category Detail Notes Category Not es General Examination GENERAL APPEARANCE: pleasant , well nourished, well developed, in no acute distress EYES: sclera non-icteric NECK/THYROID: no cervical lymphade nopathy, neck supple HEART: S1, S2 normal LUNGS: clear to auscultatio n bilaterally ABDOMEN: normal bowel sounds, no guarding or rigidity, no hepatosplenomegaly, no masses palpable, soft, nontender, nondistended. NEUROLOGIC: alert and oriented SKIN: nonjaundiced, no spi mary jane angiomata. EXTREMITIES: no edema ORAL CAVITY: mucosa moist
--- OUTSIDE RECORDS SUMMARY | 2024-09-12 09:45 | XMS_ITS | Patient Health Record ---
Author Organization [facility] Address [address] [place] [address] Care Team Providers Care Legislative Advocate Name Role Phone Marcelo Craig MD Primary Care Provider Nikolai Castillo [phone] Allergies Allergen (clinical drug ingredient) Drug/Non Drug Allergy documented on EMR Reaction Allergy Type Onset Date Status Simvastatin Unknown Drug Allergy Activ e Results Component Value Reference Range Notes Glucose, Whole Blood Reviewed date:09/09/2024 12:16:55 AM Interpretation: Performing Lab:[facility], [address] [place] [phone] Notes/Report: Glucose, Whole Blood 223 60-115 mg/dL METER # : [id number] Pathology (Not yet reviewed by provider) Interpretation: Performing Lab:[facility], [address] [place] [phone] Notes/Report: ---- Name: Lary Golden Age/Sex: 74/M : 1950 Unit#: [id number] Attend Dr: Nikolai Torres MD Re09/08/24 Status : [facility] Location: [facility] Disch: ---- SPEC : [id number] RECD : 09/08/24 STATUS: GABRIEL NICOLAS NUM: [id number] KARISSA: 09/08/24-[address] [facility] [address]: Nikolai Torres MD ENTERED: 09/08/2412 46 SP TYPE: Surgical OTHR DR: Marcelo Craig MD ORDERED: HE Stain/6, Gross Micro L4/2 Diagnosis A. Colon, ascending, polypectomy: Sessile serrated polyp/lesion without dysplasia. B. Colon, polyp at 5 0 cm, polypectomy: Tubular adenoma; negative for high-grade dysplasia. Clinical History Pre-Op Dx: Encounter for screening for malignant neoplasm of colon Post-Op Dx: Polyps, diverticulosis, hemorrhoids Microscopic Description Microscopic sections reviewed. Material Received A. Ascending colon polyp B. Colon polyp at 50 cm Gross Description Received in two parts. Part A: Received in formalin labeled ?ascending colon polyp? is a 0.5 x 0.4 x 0.25 cm phipps- pink rectangular-pap ular tissue fragment, submitted in toto in a cassette labeled A. Part B: Received in formalin labeled colon polyp at 50 cm? is a 0.8 cm phipps-pink papular tissue fragment, bisected and entirely submitted in a cassette labeled B. Also received is scant gritty debris and mucus, aggregating 0.6 x 0.5 x 0.2 cm, retained in formalin. CEDS Copies To: Marcelo Craig MD [facility] [address] [place] [phone] CONTINUED ON NEXT PAGE ---- Name: Lary Golden Age/Sex: 74/M : 1950 Unit#: [id number] Attend Dr: Nikolai Torres MD Re09/08/24 Status : [facility] Location: [facility] Disch: ---- SPEC : [id number] RECD : 09/08/24-124 STATUS: GABRIEL FONTANEZTim NUM: [id number] KARISSA: 09/08/24-[address] [facility] [address]: Nikolai Torres MD ENTERED: 09/08/24 46 SP TYPE: Surgical OTHR DR: Marcelo Craig MD ORDERED: KATE Stain/6, Saray Rayo L4/2 Copies To: (Continued) Nikolai Torres MD [address] [place] [id number] ---- Signed (signature on file) Lizbeth Jonas MD 09/09/24 1232 ---- END OF REPORT Reason For Referral No Information Medications Medication SIG (Take, Route, Frequency, Duration) Notes Start Date End Date Status Januvia 100 MG 1 tablet Orally Once a day Active Co Q 10 300 1 capsule with a luc l Orally Once a day Active Vitamin D3 50 1 tablet Orally Once a day Active Vitamin B12 1000 MCG 1 tablet Orally Onc e a day Active Atorvastatin Calcium 40 MG 1 tablet Oral ly Once a day Active Valsartan-hydroCHLOROthiazi de 320-12.5 MG 1 tablet Orally Once a day Active glipiZIDE 5 MG 2 tablet 30 minutes before breakfast bid Active metFORMIN HCl 500 MG 2 tablet with a luc l twice a day Active Carvedilol 6.25 MG as directed Orally t wice a day Active Jardiance 25 MG 1 tablet Orally Once a day for 30 day(s) Active Omeprazole 20 MG TAKE 1 CAPSULE ONCE DAILY EVERY MORNING for 90 Active Social History Alcohol Screen Question Answer [...] Nonsmoker; 1 or 2 glasses of wine each evening Nonsmoker; 1 or 2 glasses of wine each evening Nonsmoker; 1 or 2 glasses of wine occasional Nonsmoker; 1 or 2 glasses of wine occasional Nonsmoker; 1 or 2 glasses of wine occasional Problems Problem Type SNOMED Code ICD Code Onset Dates Problem Status W/U Status Risk Notes Problem 60307600 Epigastric pain (R10.13) Active confirmed Problem 388647955 Encounter for screening for malignant neoplasm of colon (Z12.11) Active confirmed Problem Duodenitis (62997737) Duodenitis (K29.80) Active confirmed Problem Gastroesophageal reflux disease (788265408) Gastroesophageal reflux disease (K21.9) Active confirmed Problem 572338768179100 Preprocedural examination (Z01.818) Active confirmed Problem 804061708 Gallstones (K80.20) Active confirmed Problem 700380338 Long-term use of aspirin therapy (Z79.82) Active confirmed Problem Gastritis (7363309) Gastritis (K29.70) Active c onfirmed Problem 269191580 Hx of adenomatou s colonic polyps (Z86.010) Active confirmed Problem 720050043 Abnormal UGI series (R93.3) Active confirmed Problem 842732758 H. pylori infection (A04.8) Active confirmed Problem Duodenal ulcer disease (72204194) Duodenal ulcer disease (K26.9) Active confirmed Problem 93757089976110660 Abnormal ultrasound of biliary tract (R93.2) Active confirmed Problem Personal history of adenomatous and serrated colon polyps (Z86.0101) Active confirmed Vital Signs Blood pressure diastolic 00 mm Hg 05/29/2024 Height 70.5 in 05/29/2024 Blood pressure systolic 00 mm Hg 05/29/2024 Weight 190 lbs 05/29/2024 BMI 26.87 kg/m2 05/29/2024 Encounters Encounter Location Date Provider Diagnosis [facility] [address] [place], [place] [phone] 09/08/2024 Nikolai Torres [facility] [address] [place] [address] 05/29/2024 Nikolai Torres Hx of adenomatous colonic [...] advised of his progress. Plan Of Treatment Pending Test Test Name Order Date LIVER PROFILE 12/20/2022 MRI ABD NO CONTRAST (MRCP) 12/20/2022 US ABD 11/28/2022 Amylase 12/20/2022 Lipase 12/20/2022 Pathology 09/08/2024 Future Test Test Name Order Date COLONOSCOPY 04/16/2013 COLONOSCOPY 01/07/2019 UPPER GI ENDOSCOPY 11/28/2022 COLONOSCOPY 05/29/2024 Insurance Providers Payer Name Payer Address Payer Phone Subscriber Number Group Number Insured Name Patient Relationship to Insured Coverage Start Date Coverage End Date [facility] [address] [place], [place] [id number] LARY GOLDEN Self - patient is the insured Medical (General) History Medical History History ICD Code Hyperlipidemia NIDDM Screening colonoscopy 11/2007 --several tubular adenomas removed; diverticulosis and internal hemorrhoids were noted as well. Colonoscopy in 06/2013 with several small tubular adenomas removed Hypertension Denies GA,CVA,Lung disease,renal disease Screening colonoscopy in March [facility] removal of tubular adenomas Negative ETT Spring 2022 in [place] Upper endoscopy November of 2022 revealed multiple duodenal ulcers, gastritis, H. pylori, a small hiatal hernia, and reflux. He did not have any GI bleeding but did have abdominal pain. He had been taking two 81 mg aspirin daily at that time. His aspirin was stopped and he was treated with triple therapy for the H. pylori which he tolerated and completed. He remained on omeprazole and went back on one 81mg aspirin daily Abdominal ultrasound in November of 2022 revealed questionable tiny gallstones and a common bile duct of 1.1 cm. A followup MRCP was negative for any choledocholithiasis and did not reveal any cholelithiasis. Surgical History Surgery Date(Month/Year) skin cancer removal ear and cheek
--- OUTSIDE RECORDS SUMMARY | 2024-09-12 09:45 | XMS_ITS ---
Author Organization [facility] Address [address] [place] [address] Care Team Providers Care Center Receptionist Name Role Phone Marcelo Craig MD Primary Care Provider Nikolai Castillo [phone] REASON FOR VISIT screening,hx polyps Encounters Encounter Location Date Provider Diagnosis [facility] Outpatient [address], [place] [phone] 09/08/2024 Nikolai Torres Plan Of Treatment No Information Progress Notes * NATO WHEATALD ADOB:[birth year] (74 yo M)Acc No.[id number]:09/08/2024 COLON WITH MAC Patient:?LARY WHEAT Provider:?Nikolai Torres MD :1950???Age:74 Y???Sex:Male Gary e:09/08/2024 Address:[address] [place], [place] [id number] Pcp:Marcelo Craig MD Subjective: * Chief Complaints: * ???1. Screening,hx polyps. * Medical History:? Objective: * Vitals:? Assessment: Plan: * Treatment: * * The named appointment provid er may or may not be the originator of this progress note, and it is not deemed complete until electronically signed by the appointment provider. Sign off status: Pending * Provider:?Nikolai Torres MD Date:? 025 Generated for Sudhai ng/Famonetg/eTransmitting on:?09/12/2024 09:44 AM EDT
== END 2024-09-12 09:31 | disposition home or self-care (01) ==
LOC: HO.HMCH 09:04
PROVIDERS: PCP Internal Medicine; Visit Provider Internal Medicine
DX: E11.65 Type 2 diabetes mellitus with hyperglycemia (principal); I10 Essential (primary) hypertension; E78.2 Mixed hyperlipidemia; E55.9 Vitamin D deficiency, unspecified; K21.9 Gastro-esophageal reflux disease without esophagitis; E66.3 Overweight

== ENCOUNTER → 2024-09-12 09:03 | Outpatient (BNVA) | payer MEDICARE, SELFPAY | PROVIDERS: PCP Internal Medicine; Visit Provider Internal Medicine | DX: E11.65 Type 2 diabetes mellitus with hyperglycemia (principal); I10 Essential (primary) hypertension; E78.2 Mixed hyperlipidemia; E55.9 Vitamin D deficiency, unspecified; K21.9 Gastro-esophageal reflux disease without esophagitis; E66.3 Overweight; E53.8 Deficiency of other specified B group vitamins; D64.9 Anemia, unspecified; R30.0 Dysuria; Z68.26 Body mass index [BMI] 26.0-26.9, adult | CPT/HCPCS: 96127; 99202 ==

== ENCOUNTER 2024-09-22 06:29 | Outpatient (REF) | payer MEDICARE, SELFPAY ==
[2024-09-22 06:47] LABS: MANUAL DIFF FLAG NO
[2024-09-22 07:18] LABS: Basophils Absolute Auto 0.1 X10*3/uL (0.0-0.2); Basophils Percent Auto 1.1 % (0-2); Eosinophils Absolute Auto 0.2 X10*3/uL (0.0-0.4); Eosinophils Percent Auto 2.9 % (0-4); Hematocrit 43.8 % (42.0-52.0); Hemoglobin 14.7 g/dl (14.0-18.0); Imm Gran Abs Auto 0.19 X10*3/uL (0.00-0.03); Imm Gran Pct Auto 2.9 % (0.0-0.4); Lymphocytes Absolute Auto 1.9 X10*3/uL (1.2-4.9); Lymphocytes Percent Auto 28.2 % (20-40); Mean Corpuscular HGB Conc 33.6 g/dl (31.0-36.0); Mean Corpuscular Hemoglobin 32.5 pg (27.0-33.0); Mean Corpuscular Volume 96.9 fL (80.0-98.0); Mean Platelet Volume 10.7 fL (9.4-12.4); Monocytes Absolute Auto 0.8 X10*3/uL (0.1-1.2); Monocytes Percent Auto 11.7 % (2-11); Neutrophils Absolute Auto 3.5 x10*3/uL (2.0-8.3); Neutrophils Percent Auto 53.2 % (45-73); Platelet Count 191 X10*3/uL (160-400); Red Blood Count 4.52 X10*6/uL (4.60-5.80); Red Cell Distribution Width 12.9 % (11.0-16.0); White Blood Count 6.6 X10*3/uL (4.8-10.8)
[2024-09-22 07:26] LABS: Estimated Average Glucose 180 mg/dL; Hemoglobin A1C 243.7478 umol/L; Hemoglobin A1c % 7.9 % (<6.0); Total Hemoglobin (HGBA1C) 3912.9534 umol/L
[2024-09-22 08:00] LABS: Alanine Aminotransferase 19 U/L (0-40); Alkaline Phosphatase 80 U/L (39-117); Anion Gap 10 (12-20); Aspartate Amino Transferase 18 U/L (5-37); Bilirubin Total 0.9 mg/dL (0.0-1.0); Blood Urea Nitrogen 26 mg/dL (9-16); Calcium 9.8 mg/dL (8.4-10.2); Carbon Dioxide 24 mmol/L (22-29); Chloride 107 mmol/L (96-108); Cholesterol 125 mg/dL (<200); Estimated Glomerular Filt Rate > 60; Glucose Fasting 206 mg/dL (60-99); HDL Cholesterol 37 mg/dL (>40); LDL Cholesterol Calculated 56 mg/dL (<100); Potassium 4.1 mmol/L (3.3-5.1); Sodium 137 mmol/L (135-145); Total Protein 6.6 g/dL (6.5-8.0); Triglycerides 163 mg/dL (<150)
[2024-09-22 08:10] LABS: Prostate Specific Antigen 2.18 ng/mL (<0.05-4.0)
[2024-09-22 08:48] LABS: Creatinine Urine 88.16 mg/dL; Microalbumin Urine < 5.0 mg/L
== END 2024-09-22 06:30 | disposition home or self-care (01) ==
LOC: HO.LAB 06:29
PROVIDERS: PCP Internal Medicine; Referring Provider Internal Medicine; Visit Provider Internal Medicine
DX: E11.9 Type 2 diabetes mellitus without complications (principal); I10 Essential (primary) hypertension; E78.00 Pure hypercholesterolemia, unspecified; Z12.5 Encounter for screening for malignant neoplasm of prostate
CPT/HCPCS: 36415; 80053; 80061; 82043; 82570; 83036; 84153; 85025

== ENCOUNTER 2025-01-15 07:13 | Outpatient (REF) | payer MEDICARE, SELFPAY ==
--- OUTSIDE RECORDS SUMMARY | 2025-01-15 07:15 | XMS_ITS | Patient Health Record ---
Author Organization [facility] Address [address] [place] [address] Care Team Providers Care Resident Doctor Name Role Phone Rafa (RETIRED) Marcelo CRAFT Primary Care Provide r Nikolai Regalado Unavailable [phone] Allergies Allergen (clinical drug ingredient) Drug/Non Drug Allergy documented on EMR Reaction Allergy Type Onset Date Status simvastatin Simvastatin Unknown Drug Allergy Act jose j Results Component Value Reference Range Notes Glucose, Whole Blood Reviewed date:09/09/2024 12:16:55 AM Interpretation: Performing Lab:[facility], [address] [place] [phone] Notes/Report: Glucose, Whole Blood 223 60-115 mg/dL METER # : [id number] Pathology (Not yet reviewed by provider) Interpretation: Performing Lab:[facility], [address] [place] [phone] Notes/Report: Reason For Referral No Information Medications Medication [...] Problem Status W/U Status Risk Notes Problem 76376895 Epigastric pain (R10.13) Active confirmed Problem 972926060 Encounter for screening for malignant neoplasm of colon (Z12.11) Active confirmed Problem Duodenitis (90989624) Duodenitis (K29.80) Active confirmed Problem Gastroesophageal reflux disease (628294786) Gastroesophageal reflux disease (K21.9) Active confirmed Problem 053806598219842 Preprocedural examination (Z01.818) Active confirmed Problem 594551093 Gallstones (K80.20) Active confirmed Problem 680155225 Long-term use of aspirin therapy (Z79.82) Active confirmed Problem Gastritis (2181936) Gastritis (K29.70) Active c onfirmed Problem 358831120 Hx of adenomatou s colonic polyps (Z86.010) Active confirmed Problem 033425072 Abnormal UGI series (R93.3) Active confirmed Problem 302018295 H. pylori infection (A04.8) Active confirmed Problem Duodenal ulcer disease (74692777) Duodenal ulcer disease (K26.9) Active confirmed Problem 62173094256344504 Abnormal ultrasound of biliary tract (R93.2) Active confirmed Problem Personal history of adenomatous and serrated colon polyps (Z86.0101) Active confirmed Vital Signs Blood pressure diastolic 00 mm Hg 05/29/2024 Height 70.5 in 05/29/2024 Blood pressure systolic 00 mm Hg 05/29/2024 Weight 190 lbs 05/29/2024 BMI 26.87 kg/m2 05/29/2024 Encounters Encounter Location Date Provider Diagnosis [facility] Outpatient [address] [place], [place] [phone] 09/08/2024 Nikolai Torres Colon cancer screeni ng Z12.11 ; Colon polyps K63.5 ; Diverticulosis of large intestine without perforation or abscess without bleeding K57.30 and Other hemorrhoids K64.8 [facility] [address] [place] [address] 05/29/2024 Nikolai Torres Hx of adenomatous colonic polyps Z86.010 ; Duodenal ulcer disease K26.9 ; Encounter for screening for malignant neoplasm of colon Z12.11 and Preprocedural examination Z01.818 Assessments Encounter Date Diagnosis (ICD Code) Assessment Notes Treatment Notes Treatment Clinical Notes Section Notes 09/08/2024 Colon cancer screening (ICD-10 - Z12.11) 09/08/2024 Colon polyps (ICD-10 - K63.5) 05/29/2024 Hx of adenomatous colonic polyps (ICD-10 [...] to keep you advised of his progress. 09/08/2024 Diverticulosis of large intestine without perforation or abscess without bleeding (ICD-10 - K57.30) 05/29/2024 Encounter for screening for malignant neoplasm [...] to keep you advised of his progress. 09/08/2024 Other hemorrhoids (ICD-10 - K64.8) 05/29/2024 Preprocedural examination (ICD-10 - Z01.818) Overall, [...] Insured Coverage Start Date Coverage End Date [facility] [address] [place], [place] [id number] JARRET LARY Self - patient is the insured Medical (General) History Medical History History ICD Code Hyperlipidemia NIDDM Screening colonoscopy 11/2007 --several tubular adenomas removed; diverticulosis and internal hemorrhoids were noted as well. Colonoscopy in 06/2013 with several small tubular adenomas removed Hypertension Denies [place],CVA,Lung disease,renal disease Screening colonoscopy in March 2019 wi th removal of tubular adenomas Negative ETT Spring 2022 in [place] Upper endoscopy November of 2022 revealed multiple [...]
[2025-01-15 07:35] LABS: MANUAL DIFF FLAG NO
[2025-01-15 07:49] LABS: Hematocrit 43.6 % (42.0-52.0); Hemoglobin 15.2 g/dl (14.0-18.0); Imm Gran Abs Auto 0.11 X10*3/uL (0.00-0.03); Imm Gran Pct Auto 2.0 % (0.0-0.4); Lymphocytes Absolute Auto 1.5 X10*3/uL (1.2-4.9); Mean Corpuscular HGB Conc 34.9 g/dl (31.0-36.0); Mean Corpuscular Hemoglobin 33.0 pg (27.0-33.0); Mean Corpuscular Volume 94.6 fL (80.0-98.0); NRBC Abs Auto 0.000 X10*3/uL (0.0-0.012); NRBC Pct Auto 0.0 /100WBC (0.0-0.2); Platelet Count 195 X10*3/uL (160-400); Red Blood Count 4.61 X10*6/uL (4.60-5.80); White Blood Count 5.4 X10*3/uL (4.8-10.8)
[2025-01-15 07:58] LABS: Hemoglobin A1C 290.2463 umol/L; Total Hemoglobin (HGBA1C) 4002.2034 umol/L
[2025-01-15 08:22] LABS: Appearance Urine Clear; Glucose Urine UA >=1000 mg/dL (Negative); PH 6.0 (5.0-9.0); Specific Gravity - Urine >= 1.030 (1.005-1.025); UMIC TRIGGER UACC YES
[2025-01-15 08:30] LABS: Alanine Aminotransferase 24 U/L (0-40); Albumin Level 4.4 g/dL (3.5-5.0); Alkaline Phosphatase 87 U/L (39-117); Anion Gap 11 (12-20); Aspartate Amino Transferase 19 U/L (5-37); Blood Urea Nitrogen 23 mg/dL (9-16); Calcium 9.9 mg/dL (8.4-10.2); Carbon Dioxide 25 mmol/L (22-29); Chloride 107 mmol/L (96-108); Cholesterol 117 mg/dL (<200); Estimated Glomerular Filt Rate > 60; HDL Cholesterol 38 mg/dL (>40); Potassium 4.3 mmol/L (3.3-5.1); Sodium 139 mmol/L (135-145); Total Protein 6.9 g/dL (6.5-8.0); Triglycerides 81 mg/dL (<150)
[2025-01-15 09:06] LABS: Folate 9.0 ng/mL (> or = 4.0); Vitamin B12 1549 pg/mL (200-900)
== END 2025-01-15 07:14 | disposition home or self-care (01) ==
LOC: HO.LAB 07:13
PROVIDERS: PCP Internal Medicine; Visit Provider Internal Medicine
DX: E11.9 Type 2 diabetes mellitus without complications (principal); E53.8 Deficiency of other specified B group vitamins; E78.00 Pure hypercholesterolemia, unspecified; D64.9 Anemia, unspecified; E55.9 Vitamin D deficiency, unspecified
CPT/HCPCS: 36415; 80053; 80061; 81001; 82306; 82570; 82607; 82746; 83036; 84443; 85025

== ENCOUNTER 2025-01-28 09:03 | Outpatient (AMB) | payer MEDICARE, SELFPAY ==
--- NOTE | 2025-01-28 09:06 | A.OFFPC_ITS ---
Vital Signs 01/28/25 09:07 01/28/25 09:44 Height 5 ft 10.5 in Weight 185 lb 6 oz BMI 26.2 BP 140/82 H 138/76 Blood Pressure Location Lt brachial Lt brachial Position Sitting Sitting Respiration 16 Pulse 73 Pulse Source Pulse Oximeter Temp 97.3 F Temp Source Temporal Artery Scan Pulse Oximetry (%) 99 Oxygen Delivery Method Room Air Intake Visit Reasons: DM, hyperlipidemia, HTN Contract Associate Manager Required: No Accompanied by: Self / Same As Patient Allergies simvastatin Allergy (Verified 01/28/25 09:29) Unknown Medication List - Last Reconciled 01/28/25 by Remy Bryan MD atorvastatin 40 mg PO DAILY carvedilol 6.25 mg PO BID cholecalciferol (vitamin D3) (Vitamin D3) 50 mcg PO DAILY 90 days coenzyme Q10 (CoQ-10) 300 mg PO DAILY cyanocobalamin (vitamin B-12) (Vitamin B-12) 1,000 mcg PO DAILY empagliflozin (Jardiance) 25 mg PO DAILY 90 days glipizide 10 mg PO BID metformin 1,000 mg (2 x 500 mg) PO DAILY sitagliptin phosphate (Januvia) 100 mg (2 x 50 mg) PO DAILY 90 days valsartan-hydrochlorothiazide 320-12.5 mg 1 tab PO DAILY 90 days Tobacco use date assessed: 01/28/25 Fall risk assessment: No Falls in past year Last assessed Fall Risk: 01/28/25 Dental Screening Dental Screen Date: 01/28/25 Did you have a dental visit in the last 12 months?: Yes Did you have a dental problem in the last 6 months where you did not have access to dental care?: No Was dental information given to patient?: Patient has dentist HPI DM, hyperlipidemia, HTN HPI Details Patient comes in today for his follow up visit States that he feels okay He denies any headaches or dizziness Denies any SOB but he recalls experiencing some recurrent chest pains similar to what he had a few years ago - states that he underwent some cardiac testing then and was advised to optimize his blood pressure, cholesterol and diabetes control States that he also came off his low dose Aspirin sometime last year and he just went back to taking them and notes that after a few days of going back on his low dose Aspirin, his chest pains went away and have not recurred since No nausea/vomiting, no abdominal pain No change in bowel habits noted Needs a few of his Rx refilled He had his follow up labs done a couple of weeks ago - to discuss his results [facility] Medical History Overweight (BMI 25.0-29.9) Vitamin D deficiency Mixed hyperlipidemia Essential hypertension Diabetes mellitus Peptic ulcer Skin cancer H pylori ulcer GERD (gastroesophageal reflux disease) Hiatal hernia Duodenal ulcer Gastritis Arrhythmia History of ETT History of skin cancer Elevated cholesterol HTN (hypertension) Surgical History Hx of local excision of skin lesion History of esophagogastroduodenoscopy (EGD) Hx of colonoscopy Social History Housing: House Are you a primary senior caregiver to a significant other at home: No Do you presently have visiting nurse or other home services: No Patient Tobacco Use Status: Never used Tobacco e-Cigarette/Vaping Use: Never Used service: No Current occupational status: retired Current occupational exposures/hazards: No Cognitive needs: No Hearing needs: No Vision needs: No Questionnaire PHQ-9 Over the last 2 weeks, how often have you been bothered by any of the following problems? 1. Little interest or pleasure in doing things: not at all 2. Feeling down, depressed, or hopeless: not at all 3. Trouble falling or staying asleep, or sleeping too much: not at all 4. Feeling tired or having little energy: not at all 5. Poor appetite or overeating: not at all 6. Feeling bad about yourself - or that you are a failure or have let yourself or your family down: not at all 7. Trouble concentrating on things, such as reading the newspaper or watching television: not at all 8. Moving or speaking so slowly that other people could have noticed. Or the opposite - being so fidgety or restless that you have been moving around a lot more than usual: not at all 9. Thoughts that you would be better off or of hurting yourself in some way: not at all Total score: 0 Depression Screening Interpretation: Negative Depression Screening Done: Yes 43770 - PHQ-9 Billing: Yes Source: Developed by Kristopher Paket B.W. Kishor, Richy Brown and colleagues, with an educational tesha from [email or web address]. Thrive Questionnaire Date Thrive assessed: 01/28/25 I am a: Patient What is your living situation today?: I have a steady place to live Within the past 12 months, did the food you bought not last and you didn't have the money to get more?: Never true Within the past 12 months, did you worry whether your food would run out before you got money to buy more?: Never true Do you have trouble paying for medicines?: No Do you have trouble getting transportation to medical appointments?: No Do you have trouble paying your heating and electricity bill?: No Do you have trouble taking care of your child, family member or friend?: No Do you have trouble with day-to-day activities such as bathing, preparing meals, shopping, managing finances, etc.?: No Are you currently unemployed and looking for a job?: No Are you interested in more education?: No Currently or been in a relationship where the following occur: No concerns reported THRIVE Score: 0 AUDIT C Alcohol Use Questionnaire (AUDIT-C) 1. How often do you have a drink containing alcohol?: 2-3 times a week 2. How many drinks containing alcohol do you have on a typical day when you are drinking?: 1 or 2 3. How often do you have six or more drinks on one occasion?: Never Total Score: 3 Score Reviewed/Action Taken: Yes ANDREY-7 AMB Questionnaire ANDREY-7 Date ANDREY - 7 assessed: 01/28/25 Feeling nervous, anxious, or on edge: 0 = Not at all Not being able to stop or control worryin = Not at all Worrying too much about different things: 0 = Not at all Trouble relaxin = Not at all Being so restless that it is hard to sit still: 0 = Not at all Becoming easily annoyed or irritable: 0 = Not at all Feeling afraid as if something awful might happen: 0 = Not at all Total ANDREY-7 score (0-4 normal; 5-9 mild; 10-14 moderate; 15-21 severe): 0 Source: Developed by Drs. Nikolai Adan, Yodit Iverson, Richy Brown and colleagues, with an educational tesha from [email or web address]. Review of Systems Const Denies chills, Denies fatigue, Denies fever(s) and Denies headache(s) ENT Denies dysphagia, Denies dizziness, Denies otalgia, Denies headache(s), Denies neck pain, Denies odynophagia and Denies sore throat Card Denies chest pain (although he reports experiencing chest pains a few weeks ago - see HPI), Denies palpitations and Denies dyspnea Resp Denies cough and Denies dyspnea GI Denies abdominal pain, Denies constipation, Denies dysphagia, Denies heartburn, Denies diarrhea, Denies nausea, Denies odynophagia and Denies vomiting Denies difficulty urinating, Denies dysuria, Denies nocturia and Denies urinary frequency Musc Denies back pain, Denies arthralgias and Denies neck pain Skin/Breast Denies rash Neuro Denies dizziness and Denies headache(s) Endo Denies fatigue and Denies palpitations Physical exam (Primary Care) Vital Signs: Last Vital Signs Temp 97.3 F 01/28/25 09:07 Pulse 73 01/28/25 09:07 Resp 16 01/28/25 09:07 BP 140/82 H 01/28/25 09:07 Pulse Ox 99 01/28/25 09:07 Oxygen Delivery Method Room Air 01/28/25 09:07 BMI result Body Mass Index 26.2 Tobacco/Smoking Status: Tobacco use Status Tobacco use date assessed 01/28/25 01/28/25 09:08 Patient Tobacco Use Status Never used Tobacco 01/28/25 09:08 e-Cigarette/Vaping Use Never Used 01/28/25 09:08 PHQ-9: PHQ-9 Score PHQ-9: Total score 0 01/28/25 09:19 Depression Screening Interpretation: Negative Thrive Assessment: Date of Thrive Assessment Date Thrive assessed 01/28/25 01/28/25 09:08 Currently or been in a relationship where the following occur: No concerns reported Const General: no acute distress and alert HENMT Throat: Yes posterior oropharynx normal and Yes tonsils normal (no TP congestion) Neck Neck: Yes supple and No lymphadenopathy Thyroid: Thyroid normal Resp Auscultation: clear to auscultation bilaterally, no rales and no wheezes Cardio Rate: regular rate Rhythm: regular rhythm Heart sounds: no murmurs GI Palpation (GI): Soft to palpation and nontender Auscultation: normal bowel sounds General: Yes no CVA tenderness Back/Spine/Pelvis Back: no CVA tenderness Thoracic/Lumbar Spine: No lumbar spinal tenderness Skin Other: (+) raised scaling, keratotic lesion on top of the patient's head/scalp Rashes: no rashes Extrem General: Yes no clubbing, cyanosis or edema Results Reviewed Results Reviewed: Laboratory Tests 01/15/25 01/15/25 07:30 07:34 WBC 5.4 Hgb 15.2 Hct 43.6 Plt Count 195 Sodium 139 Potassium 4.3 Creatinine 1.07 Estimated GFR > 60 Fasting Glucose 243 H Hemoglobin A1c % 8.8 H Calcium 9.9 AST 19 ALT 24 Triglycerides 81 Cholesterol 117 LDL Cholesterol, Calc 63 HDL Cholesterol 38 L Vitamin B12 1549 H 25-OH Vitamin D Total 45.5 TSH 1.51 Ur Specific Rogers >= 1.030 H Urine Protein Negative Urine Glucose (UA) >=1000 H Urine Blood Negative Urine Nitrite Negative Ur Leukocyte Esterase Negative Coding Level of Care Code Est Pt Level 4 (67001) Complex EM visit Add On G2211 Diagnoses Type 2 diabetes mellitus with hyperglycemia, without long-term current use of insulin E11.65 Diabetes mellitus type: type 2 Diabetes mellitus usp insulin use: without usp use Diabetes mellitus complication status: with hyperglycemia Essential hypertension I10 Mixed hyperlipidemia E78.2 Chest pain, unspecified type R07.9 Chest pain type: unspecified Vitamin D deficiency E55.9 Gastroesophageal reflux disease without esophagitis K21.9 Esophagitis presence: without esophagitis Keratotic lesion L57.0 Overweight (BMI 25.0-29.9) E66.3 Additional Codes PHQ-9 - 90799 - PHQ-9 Billing: Yes ([id number]) Assessment & Plan Assessment & Plan (1) Diabetes mellitus: Code(s): E11.9 - Type 2 diabetes mellitus without complications Category: Medical Qualifiers: Diabetes mellitus type: type 2 Diabetes mellitus usp insulin use: without intermediate school teacher use Diabetes mellitus complication status: with hyperglycemia Qualified Code(s): E11.65 - Type 2 diabetes mellitus with hyperglycemia Plan: His HgbA1c went up to 8.8% on his recent labs (was at 7.9% back in September 2024 and at 8.6% last May - 05/29/2024) - goal is at least <7.5% Reinforced diabetic diet Continue Jardiance 25 mg QD, Glipizide 10 mg BID and Januvia 100 mg QD He was on Metformin ER 1000 mg BID but somehow had the impression that we wanted him to try cutting it back to 500 mg BID, which he did a few weeks ago Have advised patient to go back up to 1000 mg BID on his Metformin Will recheck his HgbA1c in 4 months for follow up (2) Essential hypertension: Code(s): I10 - Essential (primary) hypertension Category: Medical Plan: Reinforced low sodium diet - goal is systolic BP of 120 to 130 mm or less Continue Valsartan-HCT 320-12.5 mg QD and Carvedilol 6.25 mg BID Patient is reminded to continue monitoring his blood pressure regularly (3) Mixed hyperlipidemia: Code(s): E78.2 - Mixed hyperlipidemia Category: Medical Plan: Results of his labs done a couple of weeks ago reviewed and discussed with patient Reinforced low cholesterol diet Continue Atorvastatin 40 mg QD Will recheck his labs and fasting lipids in 4 months for follow up (4) Chest pain: Code(s): R07.9 - Chest pain, unspecified Category: Medical Qualifiers: Chest pain type: unspecified Qualified Code(s): R07.9 - Chest pain, unspecified Plan: Patient reports experiecing chest pains a few weeks ago that were similar to his symptoms from a few years ago 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 Domínguez) regularly twice a year for follow up - used to see Dr. Cedeno before he retired Have advised him to reach out to Dr. Domínguez and let him know about his recent chest pains and I will leave it up to him to determine if patient needs to be evaluated [place] or can wait until his upcoming cardiology appt in a couple of months Have advised patient that due to his diabetes, he is at a higher risk of developing coronary disease compared to the average person Have instructed him to continue on Aspirin 81 mg QD for now at least until he is seen and evaluated by cardiology (5) Vitamin D deficiency: Code(s): E55.9 - Vitamin D deficiency, unspecified Category: Medical Plan: Continue Vitamin D3 2000 units QD (6) GERD (gastroesophageal reflux disease): Code(s): K21.9 - Gastro-esophageal reflux disease without esophagitis Category: Medical Qualifiers: Esophagitis presence: without esophagitis Qualified Code(s): K21.9 - Gastro-esophageal reflux disease without esophagitis Plan: Dietary restrictions reinforced States that he just takes some OTC H2 blockers when needed for symptomatic relief (7) Keratotic lesion: Code(s): L57.0 - Actinic keratosis Category: Medical Plan: Will refer him to dermatology for further evaluation and management of the raised keratotic lesion on top of his head - patient has seen Dr. Remy in the past (8) Overweight (BMI 25.0-29.9): Code(s): E66.3 - Overweight Category: Medical Plan: Reinforced diet/exercise as tolerated/lose weight Plan Follow up in 4 months Orders: Orders Hemoglobin A1c 4 Months E11.9 - Type 2 diabetes mellitus without complications Complete Blood Count Auto Diff 4 Months D64.9 - Anemia, unspecified Comprehensive [place]. Panel Fast 4 Months E78.00 - Pure hypercholesterolemia, unspecified Lipid Panel 4 Months E78.00 - Pure hypercholesterolemia, unspecified Microalbumin, Random (w Creat) 4 Months E11.9 - Type 2 diabetes mellitus without complications TSH reflex Free T4 4 Months E78.00 - Pure hypercholesterolemia, unspecified UA CC w/rflx Micro + Cult 4 Months R30.0 - Dysuria Vitamin D 25-OH Total 4 Months E55.9 - Vitamin D deficiency, unspecified Referrals Dermatology Referral L57.0 - Actinic keratosis Medications: Changed From carvedilol 6.25 mg PO BID 180 tabs 0RF To carvedilol 6.25 mg PO BID 180 tabs 3RF 90 days From metformin 1,000 mg (2 x 500 mg) PO DAILY 90 tabs 0RF To metformin 1,000 mg (2 x 500 mg) PO DAILY 180 tabs 3RF 90 days From atorvastatin 40 mg PO DAILY 90 tabs 0RF To atorvastatin 40 mg PO DAILY 90 tabs 3RF 90 days From glipizide 10 mg PO BID 180 tabs 0RF To glipizide 10 mg PO BID 180 tabs 3RF 90 days
[2025-01-28 09:07] VITALS: BP 140/82; PULSE 73; RESP 16; TEMP 36.3; O2SAT 99; BMI 26.2
[2025-01-28 09:44] VITALS: BP 138/76
--- OUTSIDE RECORDS SUMMARY | 2025-01-28 09:46 | XMS_ITS | Patient Health Record ---
Author Organization [facility] Address [address] [place] [address] Care Team Providers Care Make Up Operator Name Role Phone Rafa (RETIRED) Marcelo CRAFT Primary Care Provide r Nikolai Regalado Unavailable [phone] Allergies Allergen (clinical drug ingredient) Drug/Non Drug Allergy documented on EMR Reaction Allergy Type Onset Date Status simvastatin Simvastatin Unknown Drug Allergy Act jose j Results Component Value Reference Range Notes Glucose, Whole Blood Reviewed date:09/09/2024 12:16:55 AM Interpretation: Performing Lab:[facility], [address] [place] [phone] Notes/Report: Glucose, Whole Blood 223 60-115 mg/dL METER # : [id number] Pathology (Not yet reviewed by provider) Interpretation: Performing Lab:[facility], [address] [place] [phone] Notes/Report: Reason For Referral No Information Medications [...] Problem Status W/U Status Risk Notes Problem 06787131 Epigastric pain (R10.13) Active confirmed Problem 321690309 Encounter for screening for malignant neoplasm of colon (Z12.11) Active confirmed Problem Duodenitis (76658766) Duodenitis (K29.80) Active confirmed Problem Gastroesophageal reflux disease (337937303) Gastroesophageal reflux disease (K21.9) Active confirmed Problem 240587043347279 Preprocedural examination (Z01.818) Active confirmed Problem 041713683 Gallstones (K80.20) Active confirmed Problem 767574590 Long-term use of aspirin therapy (Z79.82) Active confirmed Problem Gastritis (1464800) Gastritis (K29.70) Active c onfirmed Problem 247505383 Hx of adenomatou s colonic polyps (Z86.010) Active confirmed Problem 175283146 Abnormal UGI series (R93.3) Active confirmed Problem 481040198 H. pylori infection (A04.8) Active confirmed Problem Duodenal ulcer disease (12448355) Duodenal ulcer disease (K26.9) Active confirmed Problem 51744859148600398 Abnormal ultrasound of biliary tract (R93.2) Active confirmed Problem Personal history of adenomatous and serrated colon polyps (Z86.0101) Active confirmed Vital Signs Blood pressure diastolic 00 mm Hg 05/29/2024 Height 70.5 in 05/29/2024 Blood pressure systolic 00 mm Hg 05/29/2024 Weight 190 lbs 05/29/2024 BMI 26.87 kg/m2 05/29/2024 Encounters Encounter Location Date Provider Diagnosis [facility] [place] [address] [place], [place] [phone] 09/08/2024 Nikolai Torres Colon cancer screeni ng Z12.11 ; Colon polyps K63.5 ; Diverticulosis of large intestine without perforation or abscess without bleeding K57.30 and Other hemorrhoids K64.8 [facility] [address] [place] [address] 05/29/2024 Nikolai Torres Hx of adenomatous colonic [...] Insured Coverage Start Date Coverage End Date [facility] [address] [place], [place] [id number] JARRET LARY Self - patient is the insured Medical (General) History Medical History History ICD Code Hyperlipidemia NIDDM Screening colonoscopy 11/2007 --several tubular adenomas removed; diverticulosis and internal hemorrhoids were noted as well. Colonoscopy in 06/2013 with several small tubular adenomas removed Hypertension Denies [place],CVA,Lung disease,renal disease Screening colonoscopy in March 2019 wi th removal of tubular adenomas Negative ETT Spring 2022 in [place] Upper endoscopy November of 2022 revealed multiple [...]
== END 2025-01-28 09:52 | disposition home or self-care (01) ==
LOC: HO.HMCH 09:03
PROVIDERS: PCP Internal Medicine; Visit Provider Internal Medicine
DX: E11.65 Type 2 diabetes mellitus with hyperglycemia (principal); I10 Essential (primary) hypertension; E78.2 Mixed hyperlipidemia; R07.9 Chest pain, unspecified; E55.9 Vitamin D deficiency, unspecified; K21.9 Gastro-esophageal reflux disease without esophagitis; L57.0 Actinic keratosis; E66.3 Overweight

== ENCOUNTER → 2025-01-28 09:03 | Outpatient (BNVA) | payer MEDICARE, SELFPAY | PROVIDERS: PCP Internal Medicine; Visit Provider Internal Medicine | DX: I10 Essential (primary) hypertension (principal); E78.5 Hyperlipidemia, unspecified; E11.65 Type 2 diabetes mellitus with hyperglycemia; E78.2 Mixed hyperlipidemia; R07.9 Chest pain, unspecified; E55.9 Vitamin D deficiency, unspecified; K21.9 Gastro-esophageal reflux disease without esophagitis; L57.0 Actinic keratosis; E66.3 Overweight; Z68.26 Body mass index [BMI] 26.0-26.9, adult | CPT/HCPCS: 96127; 99212 ==

== ENCOUNTER 2025-06-05 09:17 | Outpatient (REF) | payer MEDICARE, SELFPAY ==
--- OUTSIDE RECORDS SUMMARY | 2024-09-08 05:50 | XMS_ITS ---
Author Organization [facility] Address [address] [place] [id number] Care Team Providers Care Shorthand Reporter Name Role Phone Rafa (RETIRED) Marcelo CRAFT Primary Care Provide Nikolai Bain [phone] REASON FOR VISIT screening,hx polyps Encounters Encounter Location Date Provider Diagnosis [facility] Outpatient [address] [place] [phone] 09/08/2024 Nikolai Torres Colon cancer scree gabbi Z12.11 ; Colon polyps K63.5 ; Diverticulosis of large intestine without perforation or abscess without bleeding K57.30 and Other hemorrhoids K64.8 Assessments Encounter Date Diagnosis (ICD Code) Assessment Notes Treatment Notes Treatment Clinical Notes Section Notes 09/08/2024 Colon cancer screening (ICD-10 - Z12.11) 09/08/2024 Colon polyps (ICD-10 - K63.5) 09/08/2024 Diverticulosis of large intestine without perforation or abscess without bleeding (ICD-10 - K57.30) 09/08/2024 Other hemorrhoids (ICD-10 - K64.8) Plan Of Treatment No Information Progress Notes * LARY WHEAT ADOB:[birth year] (74 yo M)Acc No.[id number]:09/08/2024 COLON WITH MAC Patient: LARY ALFONSO Provider: Josie Torres MD :1950 A ge:74 Y S ex:Male Date:09/08/2024 Address:[address] [place], [place] [phone] Pcp:Marcelo Craig (RETIRED )MD Subjective: * Chief Complaints: * S creening,hx polyps Assessment: * Assessment: 1. C olon cancer screening - Z12.11 (Primary) 2 . C olon polyps - K63.5? 3. D iverticulosis of large intestine without perforation or abscess without bleeding - K57.30 4 . O ther hemorrhoids - K64.8 Plan: * Procedure Codes: 4 5385 LESION REMOVAL COLONOSCOPY, Modifiers: PT 0529F INTRVL 3+YRS PTS CLNSCP [id number] RCMND FLW-UP 10 YRS DOCD, Modifiers: 1P Billing Information: * Procedure Codes: 68175 LESION REMOVAL COLONOSCOPY. Modifiers: PT 0529F INTRVL 3+YRS PTS CLNSCP DOCD. 0528F RCMND FLW-UP 10 YRS DOCD. Modifiers: 1P * The named appointment provid er may or may not be the originator of this progress note, and it is not deemed complete until electronically signed by the appointment provider. Sign off status: Pending * Provider: Josie Torres MD Date: 0 09/08/2024 Generated for Mak torres/Sonja/Minoitting on: 1 08/06/2024 09:20 AM EST
--- OUTSIDE RECORDS SUMMARY | 2025-06-05 09:20 | XMS_ITS | Patient Health Record ---
Author Organization [facility] Address [address] [place] [address] Care Team Providers Care [employer] Name Role Phone Rafa (RETIRED) Marcelo CRAFT Primary Care Provide r Nikolai Regalado Unavailable [phone] Allergies Allergen (clinical drug ingredient) Drug/Non Drug Allergy documented on EMR Reaction Allergy Type Onset Date Status simvastatin Simvastatin Unknown Drug Allergy Act jose j Results Component Value Reference Range Flag Notes Glucose, Whole Blood Reviewed date:09/09/2024 12:16:55 AM Interpretation: Performing Lab:[facility], [address] [place] [phone] Notes/Report: Glucose, Whole Blood 223 60-115 mg/dL H [place] TER #: [id number] Pathology Reviewed date:05/16/2025 05:53:12 PM Interpretation: Performing Lab:[facility], [address] [place] [phone] Notes/Report: Reason For Referral No Information Medications Medication SIG (Take, Route, Frequency, Duration) Notes Start Date End Date Status Januvia 100 MG Tablet 1 tablet Orally On ce a day Active Co Q 10 300 mg 1 capsule with a luc l Orally Once a day Active Omeprazole 20 MG Capsule Delayed Release TAKE 1 CAPSULE ONCE DAILY EVERY MORNING; Duration: 90 Active Vitamin D3 50 mcg 1 tablet Orally Once a day Active Vitamin B12 1000 MCG Tablet Extended Release 1 tablet Orally Once a day Active Atorvastatin Calcium 40 MG Tablet 1 tablet Orally Once a day Active Valsartan-hydroCHLOROthiazi de 320-12.5 MG Tablet 1 tablet Orally Once a day Active glipiZIDE 5 MG Tablet 2 tablet 30 minute s before breakfast bid Active metFORMIN HCl 500 MG Tablet 2 tablet wit h a meal twice a day Active Carvedilol 6.25 MG Tablet as directed Or ally twice a day Active Jardiance 25 MG Tablet 1 tablet Orally O nce a day; Duration: 30 day(s) Active Social History Social History Drugs/Alcohol: Social Info Question Answer Notes Alcohol Screen Did you have a drink containing alcohol in the past year? Yes How often did you have a drink containing alcohol in the past year? Never (0 point) How many drinks did you have on a typical day when you were drinking in the past year? 1 or 2 drinks (0 point) How often did you have 6 or more drinks on one occasion in the past year? Never (0 point) Points 0 Interpretation Negative Additional Details Category Social Info Options Details Miscellaneous: Marital status: Occupation: retired Section Notes: Nonsmoker; 1 or 2 glasses of wine each evening Nonsmoker; 1 or 2 glasses of wine each evening Nonsmoker; 1 or 2 glasses of wine occasional Nonsmoker; 1 or 2 glasses of wine occasional Nonsmoker; 1 or 2 glasses of wine occasional Problems Problem Type SNOMED Code ICD Code Onset Dates Problem Status W/U Status Risk Notes Problem Epigastric pain (38701707) Epigastric pain (R10.13) Active confirmed Problem Screening for malignant neoplasm of colon (698788584) Encounter for screening for malignant neoplasm of colon (Z12.11) Active confirmed Problem Duodenitis (42889939) Duodenitis (K29.80) Active confirmed Problem Gastroesophageal reflux disease (820703021) Gastroesophageal reflux disease (K21.9) Active confirmed Problem Preprocedural examination (435781079009338) Preprocedural examination (Z01.818) Active confirmed Problem Gallstones (870325475) Gallstones (K80.20) Active confirmed Problem Long-term current use of antiplatelet drug (953148428385446) Long-term use of aspirin therapy (Z79.82) Active confirmed Problem Gastritis (1293469) Gastritis (K29.70) Active c onfirmed Problem History of adenomatous polyp of colon (648649268) Hx of adenomatous colonic polyps (Z86.010) Active confirmed Problem Abnormal UGI series (R93.3) Active confirmed Problem Helicobacter pylori gastrointestinal tract infection (724251968) H. pylori infection (A04.8) Active confirmed Problem Duodenal ulcer disease (76252581) Duodenal ulcer disease (K26.9) Active confirmed Problem Abnormal findings diagnostic imaging of liver and biliary tract (926484974) Abnormal ultrasound of biliary tract (R93.2) Active confirmed Problem Personal history of adenomatous and serrated colon polyps (Z86.0101) Active confirmed Encounters Encounter Location Date Provider Diagnosis [facility] [place] Outpatient [address] [place] [id number] 09/08/2024 Nikolai Torres Colon cancer lavellee gabbi Z12.11 ; Colon polyps K63.5 ; Diverticulosis of large intestine without perforation or abscess without bleeding K57.30 and Other hemorrhoids K64.8 Assessments Encounter Date Diagnosis (ICD Code) Assessment Notes Treatment Notes Treatment Clinical Notes Section Notes 09/08/2024 Colon polyps (ICD-10 - K63.5) 09/08/2024 Colon cancer screening (ICD-10 - Z12.11) 09/08/2024 Diverticulosis of large intestine without perforation or abscess without bleeding (ICD-10 - K57.30) 09/08/2024 Other hemorrhoids (ICD-10 - K64.8) Plan Of Treatment Pending Test Test Name Order Date LIVER PROFILE 12/20/2022 MRI ABD NO CONTRAST (MRCP) 12/20/2022 US ABD 11/28/2022 Amylase 12/20/2022 Lipase 12/20/2022 Future Test Test Name Order Date COLONOSCOPY 04/16/2013 COLONOSCOPY 01/07/2019 UPPER GI ENDOSCOPY 11/28/2022 COLONOSCOPY 05/29/2024 Insurance Providers Payer Name Payer Address Payer Phone Subscriber Number Group Number Insured Name Patient Relationship to Insured Coverage Start Date Coverage End Date [facility] [address] [place], [place] [id number] JARRET LARY Self - patient is the insured Medical (General) History Medical History History ICD Code Hyperlipidemia NIDDM Screening colonoscopy 11/2007 --several tubular adenomas removed; diverticulosis and internal hemorrhoids were noted as well. Colonoscopy in 06/2013 with several small tubular adenomas removed Hypertension Denies IA,CVA,Lung disease,renal disease Screening colonoscopy in March 2019 wi removal of tubular adenomas Negative ETT Spring 2022 in [place] Upper endoscopy November of 2022 revealed multiple [...]
[2025-06-05 09:41] LABS: MANUAL DIFF FLAG NO
[2025-06-05 10:23] LABS: Appearance Urine Clear; Glucose Urine UA >=1000 mg/dL (Negative); PH 7.0 (5.0-9.0); Specific Gravity - Urine >= 1.030 (1.005-1.025); UMIC TRIGGER UACC YES
[2025-06-05 10:35] LABS: Hematocrit 45.4 % (42.0-52.0); Hemoglobin 14.9 g/dl (14.0-18.0); Imm Gran Abs Auto 0.18 X10*3/uL (0.00-0.03); Imm Gran Pct Auto 2.7 % (0.0-0.4); Lymphocytes Absolute Auto 1.2 X10*3/uL (1.2-4.9); Mean Corpuscular HGB Conc 32.8 g/dl (31.0-36.0); Mean Corpuscular Hemoglobin 32.1 pg (27.0-33.0); Mean Corpuscular Volume 97.8 fL (80.0-98.0); NRBC Abs Auto 0.000 X10*3/uL (0.0-0.012); NRBC Pct Auto 0.0 /100WBC (0.0-0.2); Platelet Count 213 X10*3/uL (160-400); Red Blood Count 4.64 X10*6/uL (4.60-5.80); White Blood Count 6.7 X10*3/uL (4.8-10.8)
[2025-06-05 11:04] LABS: Alanine Aminotransferase 24 U/L (0-40); Albumin Level 4.4 g/dL (3.5-5.0); Alkaline Phosphatase 79 U/L (39-117); Anion Gap 13 (12-20); Aspartate Amino Transferase 21 U/L (5-37); Blood Urea Nitrogen 20 mg/dL (9-16); Calcium 10.5 mg/dL (8.4-10.2); Carbon Dioxide 25 mmol/L (22-29); Chloride 105 mmol/L (96-108); Cholesterol 130 mg/dL (<200); Estimated Glomerular Filt Rate > 60; HDL Cholesterol 49 mg/dL (>40); Potassium 4.4 mmol/L (3.3-5.1); Sodium 139 mmol/L (135-145); Total Protein 6.8 g/dL (6.5-8.0); Triglycerides 108 mg/dL (<150)
== END 2025-06-05 09:18 | disposition home or self-care (01) ==
LOC: HO.LAB 09:17
PROVIDERS: PCP Internal Medicine; Visit Provider Internal Medicine
DX: E11.9 Type 2 diabetes mellitus without complications (principal); E78.00 Pure hypercholesterolemia, unspecified; E55.9 Vitamin D deficiency, unspecified; D64.9 Anemia, unspecified
CPT/HCPCS: 36415; 80053; 80061; 81001; 82306; 82570; 83036; 84443; 85025

== ENCOUNTER 2025-06-08 09:15 | Outpatient (AMB) | payer MEDICARE, SELFPAY ==
--- OUTSIDE RECORDS SUMMARY | 2024-09-08 05:50 | XMS_ITS ---
Author Organization [facility] Address [address] [place] [id number] Care Team Providers Care Financial Services Sales Representative Name Role Phone Rafa (RETIRED) Marcelo CRAFT Primary Care Provide Nikolai Bain [phone] REASON FOR VISIT screening,hx polyps Encounters Encounter Location Date Provider Diagnosis [facility] Outpatient [address] [place] [phone] 09/08/2024 Nikolai Torres Colon cancer scree gabbi [...] LARY WHEAT ADOB:[birth year] (74 yo M)Acc No.[id number]:09/08/2024 COLON WITH MAC Patient: LARY ALFONSO Provider: Josie Torres MD :1950 A ge:74 Y S ex:Male Date:09/08/2024 Address:[address] [place], [place] [phone] Pcp:Marcelo Craig (RETIRED )MD Subjective: * Chief [...] Modifiers: PT 0529F INTRVL 3+YRS PTS CLNSCP [id number] RCMND FLW-UP 10 YRS DOCD, Modifiers: 1P Billing Information: * Procedure Codes: 03628 LESION REMOVAL COLONOSCOPY. Modifiers: PT 0529F INTRVL [...] 09/08/2024 Generated for Mak torres/Sonja/Minoitting on: 1 09:32 AM EST
--- NOTE | 2025-06-08 09:22 | A.OFFPC_ITS ---
Vital Signs 06/08/25 09:23 Height 5 ft 10.5 in Weight 190 lb 6 oz BMI 26.9 BP 132/78 Blood Pressure Location Lt brachial Position Sitting Pulse 68 Pulse Source Pulse Oximeter Pulse Oximetry (%) 97 Oxygen Delivery Method Room Air Intake Visit Reasons: Follow Up Drawer In Required: No Accompanied by: Self / Same As Patient Allergies simvastatin Allergy (Verified 06/08/25 09:50) Unknown Medication List - Last Reconciled 06/08/25 by Remy Bryan MD atorvastatin 40 mg PO DAILY 90 days carvedilol 6.25 mg PO BID 90 days cholecalciferol (vitamin D3) (Vitamin D3) 50 mcg PO DAILY 90 days coenzyme Q10 (CoQ-10) 300 mg PO DAILY cyanocobalamin (vitamin B-12) (Vitamin B-12) 1,000 mcg PO DAILY empagliflozin (Jardiance) 25 mg PO DAILY 90 days glipizide 10 mg PO BID 90 days metformin 2 tablets in AM, 1 tablet at noon and 1 tablet in the evening; sitagliptin phosphate (Januvia) 100 mg (2 x 50 mg) PO DAILY 90 days valsartan-hydrochlorothiazide 320-12.5 mg 1 tab PO DAILY 90 days Tobacco use date assessed: 06/08/25 Fall risk assessment: No Falls in past year Last assessed Fall Risk: 06/08/25 Dental Screening Dental Screen Date: 06/08/25 Did you have a dental visit in the last 12 months?: Yes Did you have a dental problem in the last 6 months where you did not have access to dental care?: No Was dental information given to patient?: Patient has dentist HPI Follow Up HPI Details Patient comes in today for his follow up visit States that he feels okay He denies any headaches or dizziness Denies any chest pains, no increased SOB No nausea/vomiting, no abdominal pain No change in bowel habits noted He recalls that about 9 months ago, he was experiencing some symptoms of mild chest discomfort after he tried stopping his low-dose Aspirin States that he went back on his Aspirin 81 mg QD and his symptoms gradually resolved in a few days He continues to follow up with cardiology (Dr. Domínguez) regularly and has an appointment to see him again for his yearly follow up in August 2025 He had his follow up labs done a few days ago - to discuss his results [facility] Medical History Overweight (BMI 25.0-29.9) Vitamin D deficiency Mixed hyperlipidemia Essential hypertension Diabetes mellitus Peptic ulcer Skin cancer H pylori ulcer GERD (gastroesophageal reflux disease) Hiatal hernia Duodenal ulcer Gastritis Arrhythmia History of ETT History of skin cancer Elevated cholesterol HTN (hypertension) Surgical History Hx of local excision of skin lesion History of esophagogastroduodenoscopy (EGD) Hx of colonoscopy Social History Housing: House Are you a primary care management coordinator to a significant other at home: No Do you presently have visiting nurse or other home services: No Patient Tobacco Use Status: Never used Tobacco e-Cigarette/Vaping Use: Never Used service: No Current occupational status: retired Current occupational exposures/hazards: No Cognitive needs: No Hearing needs: No Vision needs: No Questionnaire PHQ-9 Over the last 2 weeks, how often have you been bothered by any of the following problems? 1. Little interest or pleasure in doing things: not at all 2. Feeling down, depressed, or hopeless: not at all 3. Trouble falling or staying asleep, or sleeping too much: not at all 4. Feeling tired or having little energy: not at all 5. Poor appetite or overeating: not at all 6. Feeling bad about yourself - or that you are a failure or have let yourself or your family down: not at all 7. Trouble concentrating on things, such as reading the newspaper or watching television: not at all 8. Moving or speaking so slowly that other people could have noticed. Or the opposite - being so fidgety or restless that you have been moving around a lot more than usual: not at all 9. Thoughts that you would be better off or of hurting yourself in some way: not at all Total score: 0 Depression Screening Interpretation: Negative Depression Screening Done: Yes 37483 - PHQ-9 Billing: Yes Source: Developed by Drs. Nikolai Adan, Yodit Iverson, Richy Brown and colleagues, with an educational tesha from [employer]. Thrive Questionnaire Date Thrive assessed: 06/08/25 I am a: Patient What is your living situation today?: I have a steady place to live Within the past 12 months, did the food you bought not last and you didn't have the money to get more?: Never true Within the past 12 months, did you worry whether your food would run out before you got money to buy more?: Never true Do you have trouble paying for medicines?: No Do you have trouble getting transportation to medical appointments?: No Do you have trouble paying your heating and electricity bill?: No Do you have trouble taking care of your child, family member or friend?: No Do you have trouble with day-to-day activities such as bathing, preparing meals, shopping, managing finances, etc.?: No Are you currently unemployed and looking for a job?: No Are you interested in more education?: No Please select the resources that you would like help with: None Currently or been in a relationship where the following occur: No concerns reported THRIVE Score: 0 AUDIT C Alcohol Use Questionnaire (AUDIT-C) 1. How often do you have a drink containing alcohol?: 2-3 times a week 2. How many drinks containing alcohol do you have on a typical day when you are drinking?: 1 or 2 3. How often do you have six or more drinks on one occasion?: Never Total Score: 3 Score Reviewed/Action Taken: Yes ANDREY-7 AMB Questionnaire ANDREY-7 Date ANDREY - 7 assessed: 06/08/25 Feeling nervous, anxious, or on edge: 0 = Not at all Not being able to stop or control worryin = Not at all Worrying too much about different things: 0 = Not at all Trouble relaxin = Not at all Being so restless that it is hard to sit still: 0 = Not at all Becoming easily annoyed or irritable: 0 = Not at all Feeling afraid as if something awful might happen: 0 = Not at all Total ANDREY-7 score (0-4 normal; 5-9 mild; 10-14 moderate; 15-21 severe): 0 Source: Developed by Drs. Nikolai Adan, Yodit Iverson, Richy Brown and colleagues, with an educational tesha from [employer]. Review of Systems Const Denies chills, Denies fatigue, Denies fever(s) and Denies headache(s) ENT Denies dysphagia, Denies dizziness, Denies otalgia, Denies headache(s), Denies neck pain, Denies odynophagia and Denies sore throat Card Denies chest pain (but he reports experiencing some chest pains a few months ago - see HPI), Denies palpitations and Denies dyspnea Resp Denies chest congestion, Denies cough and Denies dyspnea GI Denies abdominal pain, Denies constipation, Denies dysphagia, Denies heartburn, Denies diarrhea, Denies nausea, Denies odynophagia and Denies vomiting Denies difficulty urinating, Denies dysuria, Denies nocturia and Denies urinary frequency Musc Denies back pain, Denies arthralgias and Denies neck pain Skin/Breast Denies rash Neuro Denies dizziness and Denies headache(s) Endo Denies fatigue and Denies palpitations Physical exam (Primary Care) Vital Signs: Last Vital Signs Pulse 68 06/08/25 09:23 BP 132/78 06/08/25 09:23 Pulse Ox 97 06/08/25 09:23 Oxygen Delivery Method Room Air 06/08/25 09:23 BMI result Body Mass Index 26.9 Tobacco/Smoking Status: Tobacco use Status Tobacco use date assessed 06/08/25 06/08/25 09:29 Patient Tobacco Use Status Never used Tobacco 06/08/25 09:29 e-Cigarette/Vaping Use Never Used 06/08/25 09:29 PHQ-9: PHQ-9 Score PHQ-9: Total score 0 06/08/25 09:29 Depression Screening Interpretation: Negative Thrive Assessment: Date of Thrive Assessment Date Thrive assessed 06/08/25 06/08/25 09:29 Currently or been in a relationship where the following occur: No concerns reported Const General: no acute distress and alert HENMT Throat: Yes posterior oropharynx normal and Yes tonsils normal (no TP congestion) Neck Neck: Yes supple and No lymphadenopathy Thyroid: Thyroid normal Resp Auscultation: clear to auscultation bilaterally, no rales and no wheezes Cardio Rate: regular rate Rhythm: regular rhythm Heart sounds: no murmurs GI Palpation (GI): Soft to palpation and nontender Auscultation: normal bowel sounds General: Yes no CVA tenderness Back/Spine/Pelvis Back: no CVA tenderness Thoracic/Lumbar Spine: No lumbar spinal tenderness Skin Rashes: no rashes Extrem General: Yes no clubbing, cyanosis or edema Results Reviewed Results Reviewed: Laboratory Tests 06/05/25 06/05/25 09:32 09:38 WBC 6.7 Hgb 14.9 Hct 45.4 Plt Count 213 Sodium 139 Potassium 4.4 Creatinine 0.88 Estimated GFR > 60 Fasting Glucose 279 H Hemoglobin A1c % 8.7 H Calcium 10.5 H D Total Bilirubin 1.4 H AST 21 ALT 24 Triglycerides 108 Cholesterol 130 LDL Cholesterol, Calc 60 HDL Cholesterol 49 25-OH Vitamin D Total 42.9 TSH 1.19 Ur Specific [place] >= 1.030 H Urine Protein Negative Urine Glucose (UA) >=1000 H Urine Blood Negative Urine Nitrite Negative Ur Leukocyte Esterase Negative Coding Level of Care Code Est Pt Level 4 (84941) Add On Problem Visit Only Diagnoses Type 2 diabetes mellitus with hyperglycemia, without long-term current use of insulin E11.65 Diabetes mellitus type: type 2 Diabetes mellitus senior care insulin use: without long term care pharmacist use Diabetes mellitus complication status: with hyperglycemia Essential hypertension I10 Mixed hyperlipidemia E78.2 Chest pain, unspecified type R07.9 Chest pain type: unspecified Vitamin D deficiency E55.9 Gastroesophageal reflux disease without esophagitis K21.9 Esophagitis presence: without esophagitis Serum total bilirubin elevated R17 Overweight (BMI 25.0-29.9) E66.3 Additional Codes PHQ-9 - 32886 - PHQ-9 Billing: Yes ([id number]) Assessment & Plan Assessment & Plan (1) Diabetes mellitus: Code(s): E11.9 - Type 2 diabetes mellitus without complications Category: Medical Qualifiers: Diabetes mellitus type: type 2 Diabetes mellitus senior care insulin use: without senior care use Diabetes mellitus complication status: with hyperglycemia Qualified Code(s): E11.65 - Type 2 diabetes mellitus with hyperglycemia Plan: Patient's HgbA1c was at 8.7% on his labs done a few days ago (it was previously at 8.8% a few months ago and at 7.9% back in September 2024) - goal is at least <7.5% Reinforced diabetic diet Continue Jardiance 25 mg QD, Glipizide 10 mg BID, Januvia 100 mg QD and Metformin 500 mg 2 tablets in AM, 1 tablet at noon and 1 tablet in the evening He admits to being less active during the winter months as it is too cold for him to be outside - states that he normally works in his garden, goes out to walk at least 3 times a week and rides his bicycle about twice a week when the weather is warmer in the spring, summer and fall months Have advised patient to find some alternative activities that he can do indoors during the winter to help him stay active and that if he cannot get his HgbA1c back to goal, then we may need to start him additionally on some other Rx for his diabetes (2) Essential hypertension: Code(s): I10 - Essential (primary) hypertension Category: Medical Plan: Reinforced low sodium diet - goal is systolic BP of 120 to 130 mm or less Continue Valsartan-HCT 320-12.5 mg QD and Carvedilol 6.25 mg BID Patient is reminded to continue monitoring his blood pressure regularly (3) Mixed hyperlipidemia: Code(s): E78.2 - Mixed hyperlipidemia Category: Medical Plan: Results of his labs done a few days ago reviewed and discussed with patient - his cholesterol levels have remained adequately controlled so far Reinforced low cholesterol diet Continue Atorvastatin 40 mg QD Will recheck his labs and fasting lipids in 4 months for follow up (4) Chest pain: Code(s): R07.9 - Chest pain, unspecified Category: Medical Qualifiers: Chest pain type: unspecified Qualified Code(s): R07.9 - Chest pain, unspecified Plan: Patient reports experiecing chest pains a few months ago that were similar to his past symptoms from a few years back 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 Domínguez) regularly once or twice a year for follow up - he used to see Dr. Cedeno before he retired Have advised him to make sure he mentions this to Dr. Domínguez at his scheduled appointment with him in August 2025 Have reminded patient that due to his diabetes, he is at a higher risk of developing coronary disease compared to the average person Continue Aspirin 81 mg QD (5) Vitamin D deficiency: Code(s): E55.9 - Vitamin D deficiency, unspecified Category: Medical Plan: Continue Vitamin D3 2000 units QD (6) GERD (gastroesophageal reflux disease): Code(s): K21.9 - Gastro-esophageal reflux disease without esophagitis Category: Medical Qualifiers: Esophagitis presence: without esophagitis Qualified Code(s): K21.9 - Gastro-esophageal reflux disease without esophagitis Plan: Dietary restrictions reinforced States that he just takes some OTC H2 blockers when needed for symptomatic relief (7) Serum total bilirubin elevated: Code(s): R17 - Unspecified jaundice Category: Medical Plan: His total serum bilirubin was elevated on his recent labs but his LFTs were normal Patient denies any acute abdominal symptoms Will recheck this and also check his direct bilirubin level in a few months for follow up and if his direct bilirubin is elevated, will then consider sending him for abdominal US for further evaluation (8) Overweight (BMI 25.0-29.9): Code(s): E66.3 - Overweight Category: Medical Plan: Reinforced diet/exercise as tolerated/lose weight Plan Follow up in 4 months Orders: Orders Comprehensive Lillie. Panel Fast 4 Months E78.00 - Pure hypercholesterolemia, unspecified Lipid Panel 4 Months E78.00 - Pure hypercholesterolemia, unspecified Vitamin D 25-OH Total 4 Months E55.9 - Vitamin D deficiency, unspecified Vitamin B12 and Folate 4 Months E53.8 - Deficiency of other specified B group vitamins Bilirubin Direct 4 Months R17 - Unspecified jaundice Hemoglobin A1c 4 Months E11.9 - Type 2 diabetes mellitus without complications Complete Blood Count Auto Diff 4 Months D64.9 - Anemia, unspecified Microalbumin, Random (w Creat) 4 Months E11.9 - Type 2 diabetes mellitus without complications TSH reflex Free T4 4 Months E78.00 - Pure hypercholesterolemia, unspecified UA CC w/rflx Micro + Cult 4 Months R30.0 - Dysuria Medications: Changed From metformin 1,000 mg (2 x 500 mg) PO DAILY 90 days 180 tabs 3RF To metformin 2 tablets in AM, 1 tablet at noon and 1 tablet in the evening;
[2025-06-08 09:23] VITALS: BP 132/78; PULSE 68; O2SAT 97; BMI 26.9
--- OUTSIDE RECORDS SUMMARY | 2025-06-08 09:32 | XMS_ITS | Patient Health Record ---
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 Role Phone Rafa (RETIRED) Marcelo CRAFT Primary Care Provide r Nikolai Regalado Unavailable [phone] Allergies Allergen (clinical drug ingredient) Drug/Non Drug Allergy documented on EMR Reaction Allergy Type Onset Date Status simvastatin Simvastatin Unknown Drug Allergy Act jose j Results Component Value Reference Range Flag Notes Glucose, Whole Blood Reviewed date:09/09/2024 12:16:55 AM Interpretation: Performing Lab:[facility], [address] [place] [phone] Notes/Report: Glucose, Whole Blood 223 60-115 mg/dL H [place] TER #: [id number] Pathology Reviewed date:05/16/2025 05:53:12 PM Interpretation: Performing Lab:[facility], [address] [place] [phone] Notes/Report: Reason For Referral No Information Medications [...] W/U Status Risk Notes Problem Epigastric pain (41361646) Epigastric pain (R10.13) Active confirmed Problem Screening for malignant neoplasm of colon (507693048) Encounter for screening for malignant neoplasm of colon (Z12.11) Active confirmed Problem Duodenitis (16508605) Duodenitis (K29.80) Active confirmed Problem Gastroesophageal reflux disease (365117336) Gastroesophageal reflux disease (K21.9) Active confirmed Problem Preprocedural examination (029019474892774) Preprocedural examination (Z01.818) Active confirmed Problem Gallstones (608701504) Gallstones (K80.20) Active confirmed Problem Long-term current use of antiplatelet drug (170448103073882) Long-term use of aspirin therapy (Z79.82) Active confirmed Problem Gastritis (3100845) Gastritis (K29.70) Active c onfirmed Problem History of adenomatous polyp of colon (039169684) Hx of adenomatous colonic polyps (Z86.010) Active confirmed Problem Abnormal UGI series (R93.3) Active confirmed Problem Helicobacter pylori gastrointestinal tract infection (716010236) H. pylori infection (A04.8) Active confirmed Problem Duodenal ulcer disease (41650935) Duodenal ulcer disease (K26.9) Active confirmed Problem Abnormal findings diagnostic imaging of liver and biliary tract (783290976) Abnormal ultrasound of biliary tract (R93.2) Active confirmed Problem Personal history of adenomatous and serrated colon polyps (Z86.0101) Active confirmed Encounters Encounter Location Date Provider Diagnosis [facility] [place] [address] [place] [id number] 09/08/2024 Nikolai Torres Colon cancer lavellee gabbi [...] Insured Coverage Start Date Coverage End Date [facility] [address] [place], [place] [id number] JARRET LARY Self - patient is the insured Medical (General) History Medical History History ICD Code Hyperlipidemia NIDDM Screening colonoscopy 11/2007 --several tubular adenomas removed; diverticulosis and internal hemorrhoids were noted as well. Colonoscopy in 06/2013 with several small tubular adenomas removed Hypertension Denies CT,CVA,Lung disease,renal disease Screening colonoscopy in March 2019 wi removal of tubular adenomas Negative ETT Spring 2022 in [place] Upper endoscopy November of 2022 revealed multiple [...]
== END 2025-06-08 10:03 | disposition home or self-care (01) ==
LOC: HO.HMCH 09:16
PROVIDERS: PCP Internal Medicine; Visit Provider Internal Medicine
DX: E11.65 Type 2 diabetes mellitus with hyperglycemia (principal); I10 Essential (primary) hypertension; E78.2 Mixed hyperlipidemia; R07.9 Chest pain, unspecified; E55.9 Vitamin D deficiency, unspecified; K21.9 Gastro-esophageal reflux disease without esophagitis; R17 Unspecified jaundice; E66.3 Overweight

== ENCOUNTER → 2025-06-08 09:15 | Outpatient (BNVA) | payer MEDICARE, SELFPAY | PROVIDERS: PCP Internal Medicine; Visit Provider Internal Medicine | DX: E11.65 Type 2 diabetes mellitus with hyperglycemia (principal); I10 Essential (primary) hypertension; E78.2 Mixed hyperlipidemia; R07.9 Chest pain, unspecified; E55.9 Vitamin D deficiency, unspecified; K21.9 Gastro-esophageal reflux disease without esophagitis; R17 Unspecified jaundice; E66.3 Overweight; Z68.26 Body mass index [BMI] 26.0-26.9, adult | CPT/HCPCS: 96127; 99212 ==